=== PATIENT | female | born 1990 | race Hispanic/Latino ===

== ENCOUNTER 2017-10-04 02:26 | Inpatient (IN) | payer OTHER ==
--- OUTSIDE RECORDS SUMMARY | 2017-10-04 10:09 | XMS REPORT ---
:1990 Author Organization eClinicalWorks Care Team Providers Name Role Phone Mirian Irvin Provider Role Unavailable Allergies No Known Allergies Problems Problem Type Condition Code Onset Dates Condition Status Problem Size of fetus inconsistent with O26.843 Active dates in third trimester Problem with uncertain dates in Z34.93 Active third trimester Problem BMI 31.0-31.9,adult Z68.31 Active Assessment with uncertain dates in Z34.93 Active third trimester Assessment Size of fetus inconsistent with O26.843 Active dates in third trimester Problem Unspecified asthma, uncomplicated J45.909 Active Medications Medication Code Code Instructions Start End Date Status Dosage System Date Albuterol [facility] [place]NOTE 2] [id number] 108 (90 Base) Feb 12, Active 2 puffs Sulfate HFA MCG/ACT 2018 as needed Inhalation every 6 hrs Results No Known Results Summary Purpose eClinicalWorks Submission
--- OUTSIDE RECORDS SUMMARY | 2017-10-04 10:09 | XMS REPORT ---
:1990 Author Organization eClinicalWorks Care Team Providers Name Role Phone Mirian Irvin Provider Role Unavailable Allergies No Known Allergies Problems Problem Type Condition Code Onset Dates Condition Status Assessment Unspecified asthma, uncomplicated J45.909 Active Assessment BMI 32.0-32.9,adult Z68.32 Active Assessment Size of fetus inconsistent with O26.843 Active dates in third trimester Problem High-risk in third O09.93 Active trimester Problem Size of fetus inconsistent with O26.843 Active dates in third trimester Problem BMI 32.0-32.9,adult Z68.32 Active Assessment High-risk in third O09.93 Active trimester Problem with uncertain dates in Z34.93 Active third trimester Problem Unspecified asthma, uncomplicated J45.909 Active Medications Medication Code Code Instructions Start End Date Status Dosage System Date Albuterol [facility] [id number] 108 (90 Base) Feb 12, Active 2 puffs Sulfate HFA MCG/ACT 2018 as needed Inhalation every 6 hrs Results No Known Results Summary Purpose [employer] Submission
--- OUTSIDE RECORDS SUMMARY | 2017-10-04 10:09 | XMS REPORT ---
:1990 Author Organization eClinicalWorks Care Team Providers Name Role Phone Mirian Irvin Provider Role Unavailable Allergies No Known Allergies Problems Problem Type Condition Code Onset Dates Condition Status Assessment Unspecified asthma, uncomplicated J45.909 Active Assessment Size of fetus inconsistent with O26.843 Active dates in third trimester Assessment BMI 32.0-32.9,adult Z68.32 Active Problem High-risk in third O09.93 Active trimester Problem Size of fetus inconsistent with O26.843 Active dates in third trimester Problem BMI 32.0-32.9,adult Z68.32 Active Assessment High-risk in third O09.93 Active trimester Problem with uncertain dates in Z34.93 Active third trimester Problem Unspecified asthma, uncomplicated J45.909 Active Medications Medication Code Code Instructions Start End Date Status Dosage System Date Albuterol [facility] [id number] 108 (90 Base) Feb 12, Active 2 puffs Sulfate HFA MCG/ACT 2018 as needed Inhalation every 6 hrs Results No Known Results Summary Purpose [employer] Submission
--- OUTSIDE RECORDS SUMMARY | 2017-10-04 10:10 | XMS REPORT ---
:1990 Author Organization eClinicalWorks Care Team Providers Name Role Phone Mirian Irvin Provider Role Unavailable Allergies No Known Allergies Problems Problem Type Condition Code Onset Dates Condition Status Assessment High-risk in third O09.93 Active trimester Assessment BMI 33.0-33.9,adult Z68.33 Active Problem High-risk in third O09.93 Active trimester Problem Size of fetus inconsistent with O26.843 Active dates in third trimester Problem BMI 33.0-33.9,adult Z68.33 Active Assessment Size of fetus inconsistent with O26.843 Active dates in third trimester Problem with uncertain dates in Z34.93 Active third trimester Problem Unspecified asthma, uncomplicated J45.909 Active Medications Medication Code Code Instructions Start End Date Status Dosage System Date Albuterol [facility] [id number] 108 (90 Base) Apr 08, Active 2 puffs Sulfate HFA MCG/ACT 2018 as needed Inhalation every 6 hrs Results No Known Results Summary Purpose eClinicalWorks Submission
--- OUTSIDE RECORDS SUMMARY | 2017-10-04 10:10 | XMS REPORT ---
:1990 Author Organization eClinicalWorks Care Team Providers Name Role Phone Mirian Irvin Provider Role Unavailable Allergies No Known Allergies Problems Problem Type Condition Code Onset Dates Condition Status Assessment Diseases of the skin and O99.713 Active subcutaneous tissue complicating , third trimester Assessment Pruritus, unspecified L29.9 Active Problem Diseases of the skin and O99.713 Active subcutaneous tissue complicating , third trimester Problem BMI 33.0-33.9,adult Z68.33 Active Problem Pruritus, unspecified L29.9 Active Problem with uncertain dates in Z34.93 Active third trimester Problem Unspecified asthma, uncomplicated J45.909 Active Problem High-risk in third O09.93 Active trimester Problem Size of fetus inconsistent with O26.843 Active dates in third trimester Medications Medication Code Code Instructions Start End Date Status Dosage System Date Albuterol [facility] [id number] 108 (90 Base) Apr 08, Active 2 puffs Sulfate HFA MCG/ACT 2018 as needed Inhalation every 6 hrs Results No Known Results Summary Purpose eClinicalWorks Submission
[2017-10-04] MEDS ORDERED: ONDANSETRON 4 MG/2 ML VIAL IV PRN (10:26)
[2017-10-04] MEDS ORDERED: Ringers Lactate 1,000 ML IV PRN (10:26)
[2017-10-04] MEDS ORDERED: METOCLOPRAMIDE 10 MG/2mL INJ IV PRN (10:26)
[2017-10-04] MEDS ORDERED: DIPHENHYDRAMINE 50 MG/ML VIAL IV PRN (10:26)
[2017-10-04 10:44] VITALS: BMI 33.5
[2017-10-04 10:53] LABS: RPR Titer ND
[2017-10-04 11:00] LABS: Absolute Lymphocytes (CBC) 1.5 K/uL (0.7-4.9); Absolute Monocytes 0.7 K/uL (0.1-1.3); Absolute Neutrophil 5.9 K/uL (1.8-8.0); Basophils % 0.3 % (0-1.3); Eosinophils % 2.2 % (0-4.4); Hematocrit 34.8 % (36.0-45.0); Lymphocytes % 18.3 % (15.3-44.8); MCH 29.6 pg (27.0-35.0); MCV 85.5 fL (80-100); MPV 8.9 fL (7.6-11.3); Monocytes % 8.5 % (3.3-12.3); RBC Red Blood Cell Count 4.07 M/uL (3.86-4.86)
[2017-10-04] MEDS ORDERED: Ringers Lactate 1,000 ML IV SCH (11:00)
[2017-10-04 11:05] LABS: Urine Appearance CLOUDY; Urine Bilirubin NEGATIVE (NEG); Urine Blood NEGATIVE (NEG); Urine Color YELLOW; Urine Glucose NEGATIVE (NEG); Urine Protein NEGATIVE (NEG); Urine Specific Gravity 1.015 (1.005-1.030); Urine Urobilinogen 0.2 mg/dL (0.2-1.0); Urine pH 6.5 (5.0-7.0)
[2017-10-04] MEDS ORDERED: miSOPROStol 100 MCG TAB PO ONE (11:12)
[2017-10-04 11:14] LABS: Urine Microscopic Reflex ORDER UMIC
[2017-10-04 11:15] LABS: Urine Bacteria 20-50 /HPF (<20); Urine Culture Reflex Order NOT NEEDED; Urine RBC <5 /HPF (NONE SEEN)
[2017-10-04 11:16] LABS: BUN Blood Urea Nitrogen 5 mg/dL (7-18); Bicarbonate 22 mmol/L (21-32); Glucose Level 100 mg/dL (74-106); Potassium 3.5 mmol/L (3.5-5.1); Sodium Level 142 mmol/L (136-145); Uric Acid 5.1 mg/dL (2.6-6.0)
--- NOTE | 2017-10-04 12:52 | P.HP ---
Certification for Inpatient Patient admitted to: Inpatient With expected LOS: >2 Midnights Patient will require the following post-hospital care: None Practitioner: I am a practitioner with admitting privileges, knowledge of patient current condition, hospital course, and medical plan of care. Services: Services provided to patient in accordance with Admission requirements found in Title 42 Section 412.3 of the Code of Federal Regulations Patient History Date of Service: 10/04/17 Reason for admission: Induction of labor for FGR, Cholestasis History of Present Illness: 27 y.o. G1 at 38w4d undergoing IOL for suspected cholestasis of with recent onset of pruritis of hands and feet for one week, change in interval growth, and elevated umbilical artery doppler. Pt has been followed by MFM to monitor growth and recent U/S showed 13th percentile as compared to 33rd percentile about 2 weeks ago. Short femurs also noted on imaging, but overall reassured by appropriate growth on interval ultrasounds. However, due to new symptoms and concerns with elevated umbilical dopplers, MFM directed delivery. BENJI: 10/14/2017. GBS negative. Allergies No Known Allergies Allergy (Unverified 02/18/17 19:49) Home Medications: Pnv Cmb#95/Ferrous Fumarate/FA [ Tablet] 1 each PO DAILY 10/04/17 - Past Medical/Surgical History Has patient received pneumonia vaccine in the past: No Diabetic: No Past Medical History: Patient denies medical history Past Surgical History: Patient denies surgical history - Social History Smoking Status: Never smoker Alcohol use: No CD- Drugs: No Caffeine use: Yes Place of Residence: Home Review of Systems 10-point ROS is otherwise unremarkable Physical Examination - Vital Signs Temperature: 98.3 F Blood Pressure: 127/76 Pulse: 115 Respirations: 18 - Physical Exam General: Alert, In no apparent distress, Oriented x3 HEENT: Atraumatic, Normocephalic Respiratory: Other (Normal effort) Cardiovascular: Normal pulses Musculoskeletal: No tenderness, Swelling (2+ pedal edema) Integumentary: No rashes, No breakdown Neurological: Normal speech, Normal strength at 5/5 x4 extr - Studies Laboratory Data (last 24 hrs) 10/04/17 10:40: Sodium 142, Potassium 3.5, BUN 5 L, Creatinine 0.50 L, Glucose 100, Uric Acid 5.1 10/04/17 10:40: WBC 8.3, Hgb 12.1, Hct 34.8 L, Plt Count 217 Female Exam - Female Pelvic Cervix: Dilation (2 by RN), Effacement (60), station (-2) - Obstetrics heart rate tracing: Category 1 Contractions: Frequency (Irregular) Amniotic membrane: Intact Assessment and Plan - Problems (Diagnosis) (1) Cholestasis during in third trimester Current Visit: Yes Status: Acute Plan: Symptoms for about 1 week now. Labs were drawn, but not yet resulted. However, due to GA and impending diagnosis, decision was made to proceed with delivery. Pt is undergoing cervical ripening with cytotec. Transition to pitocin when favorable. She declines an epidural for pain control (2) Size of fetus inconsistent with dates in third trimester Current Visit: Yes Status: Acute Plan: Pt has been followed by MFM with overall reassuring interval growth ultrasounds. However, decrease in growth was noted on recent imaging with elevated umbilical artery dopplers. Delivery was indicated based on new findings. - Advance Directives Does patient have a Living Will: No Does patient have a Durable POA for Healthcare: No
[2017-10-04] MEDS ORDERED: OXYTOCIN/LR 20 UNIT/1,000 ML BAG IV ONE (21:39)
[2017-10-04] MEDS ORDERED: OXYTOCIN/LR 20 UNIT/1,000 ML BAG IV SCH (23:00)
[2017-10-04] MEDS ORDERED: BUTORPHANOL 1 MG/ML INJ IV PRN (23:00)
[2017-10-05] MEDS ORDERED: ROPIVACAINE HCL 100 ML IV PRN (00:30)
[2017-10-05] MEDS ORDERED: ROPIVACAINE HCL 0.2% 20ML AMP IV ONE (00:31)
[2017-10-05] MEDS ORDERED: CARBOPROST TROME 250 MCG/ML IM ONE (00:32)
[2017-10-05] MEDS ORDERED: METHYLERGONOVINE 0.2MG/ML AMP IM ONE ×2 (00:32→17:44)
[2017-10-05 03:22] LABS: RPR (Rapid Plasma Reagin) NON-REACT (NON-REACT)
[2017-10-05] MEDS ORDERED: LIDOCAINE 1% MPF 30 ML VIAL SQ ONE (07:31)
--- NOTE | 2017-10-05 08:54 | P.PN ---
Date of Service: 10/05/17 Pt seen and examined. Discussed AROM and she agreed. She declines an epidural. VSS SVE: /-2 AROM: procedure done without incident. Fluid clear. Pt tolerated well FHR: cat I Contractions: q 3-4 with some coupling A/p: 27 y.o. G1 at 28w5d undergoing IOL for suspected cholestasis and fetus S < D - S/p AROM with clear fluid noted - Continue pitocin and continuous monitoring - Epidural per patient request
[2017-10-05] MEDS ORDERED: FENTANYL CITR 100 MCG/2 ML IV ONE (11:27)
[2017-10-05] MEDS ORDERED: ROPIVACAINE HCL 20 ML ONE ×2 (16:54→19:52)
--- NOTE | 2017-10-05 17:56 | P.PN ---
Date of Service: 10/05/17 Pt seen and examined: 9-10, 1+ station. RN states pt was just re-dosed by anesthesia due to increased pain, but is better now. Tracing: cat I with accelerations and early decels [place]: q 2-3 min Allow to labor down. MF status is overall reassuring. Start second stage when patient feels urge to push. Anticipate .
[2017-10-05] MEDS ORDERED: FENTANYL CITR 100 MCG/2 ML ONE (19:51)
[2017-10-05] MEDS ORDERED: ROPLVACAINE HCL 0 ML ONE (19:52)
[2017-10-05] MEDS ORDERED: NA CIT/CITRIC AC 30 ML ORAL UDC PO ONE (20:45)
[2017-10-05] MEDS ORDERED: CEFAZOLIN 2 GM in NA CHLORIDE 0.9% 100 ML IVPB SCH (20:45)
[2017-10-05] MEDS ORDERED: METOCLOPRAMIDE 10 MG/2mL INJ IV SCH (20:45)
[2017-10-05] MEDS ORDERED: FAMOTIDINE 20 MG/2 ML VIAL IV ONE (20:45)
[2017-10-05] MEDS ORDERED: LIDOCAINE 2% MPF 5 ML VIAL ONE ×2 (20:55→21:07)
[2017-10-05] MEDS ORDERED: CEFAZOLIN/SWI 2gm 2 GM/20 ML SYR ONE (20:55)
--- NOTE | 2017-10-05 21:05 | P.PN ---
Date of Service: 10/05/17 Pt painful during second stage. Anesthesia came to reassess and re-dose patient. She attempted to push momentarily after pain improved. Prolonged decel noted which resolved with discotinuing pitocin, IVF bolus, and oxygen. Irrigation Foreman called to attend delivery. Attempted VAVD using Kiwi (2 pulls), but pushing efforts were not effective so further use was aborted. Pt declined to continue pushing and requested a CD. Team was notified and Ob attending Dr. Luis called in to assist. Proceed to OR when ready.
[2017-10-05] MEDS ORDERED: PROPOFOL 200 MG/20 ML VIAL IV ONE (21:08)
[2017-10-05] MEDS ORDERED: SUCCINYLCHOLINE 20 MG/ML (10 ML) IV ONE (21:08)
[2017-10-05] MEDS ORDERED: BUPIVACAINE 0.5% PF 10 ML VIAL ONE (21:09)
[2017-10-05] MEDS ORDERED: OXYTOCIN 10 UNIT/ML ML IV ONE (21:29)
[2017-10-05] MEDS ORDERED: FENTANYL CITR 250 MCG/5 ML ONE (21:30)
[2017-10-05] MEDS ORDERED: MORPHINE SULFATE/PF 1 MG/ML (10 ML AMP) ONE (21:41)
[2017-10-05] MEDS ORDERED: Phenylephrine HCl 10 MG/ML 1 ML VIAL ONE (22:11)
[2017-10-05] MEDS ORDERED: NA CHLORIDE 0.9% 500 ML IV ONE (23:07)
--- NOTE | 2017-10-05 23:12 | P.OP ---
Preoperative diagnosis: Maternal request, maternal exhaustion, uncontrolled pain Postoperative diagnosis: Same with OP presentation Primary procedure: Primary delivery Anesthesia: General Estimated blood loss: 1000 cc Specimen: Placenta Findings: See operativer report Operative Technique: Intra-operative findings: The uterus was normal. Both fallopian tubes and ovaries were found to be normal.The was in a direct OP position. The was female and weighed 7lb 1 oz. The 's Apgars were 9 at 1 min. and 9 at 5 min. Procedure described: The patient was taken to the operating room within IV running with antibiotics infusing where she was placed in a dorsal supine position with a slight leftward tilt. A logan catheter was already in place. She was prepped and draped in the normal sterile fashion from the xiphoid sternum to the midthighs including the vulva and vagina. PAS stockings were in place and activated. A timeout was done per our usual protocol. Pain was not controlled and anesthesia was not adequately achieved. She was placed under general anesthesia. A Pfannenstielincision was made about 1 cm above the symphysis pubis and carried out through the subcutaneous tissue withthe scalpel. The fascia was nicked in the midline and the fascial incision was extended laterally with Yoo scissors. The superior aspect of the fascial incision was tented up and bluntly and sharply dissected off the rectus muscles below. In a similar fashion, the superior aspect of the fascial incision was tented up and bluntly and sharply dissected off the rectus muscles below. The rectus muscles were in the midline, the peritoneum was identified and entered sharply between two hemostats using Metzenbaum scissors. The peritoneal incision was extended superiorly and inferiorly with good visualization of intraperitoneal organs and the bladder. The bladder blade was placed, but a bladder flap was developed. A transverse curvilinear incision was made in the lower uterine segment. The incision was extended laterally with blunt digital dissection. The surgeon's hand was placed into the incision, the 's head was delivered, followed by the torso. The mouth and nose were suctioned with and suction bulb. The umbilical cord was clamped and cut and the was handed off to the awaiting immunologist. Cord blood was obtained. The uterus was massaged and the placenta was delivered. The uterus was exteriorized and cleared of all clots and debris. The bladder blade was replaced, the edges of the uterine incision where grasped with ring forceps and the incision was closed using 0- Monocryl suture in a running un-locking fashion and closed in 2 layers. There was an extension of the hysterotomy on the left side. It was closed separately using the same suture. Hemostasis was noted. The hysterotomy was inspected and found to be hemostatic. The bladder peritoneum was not re-approximately. The pelvic peritoneum was not irrigated, but was cleared of all clots and debris. The uterus was replaced into the peritoneal cavity. The rectus muscles were inspected and found to be hemostatic and the rectus muscles were not re- approximated. The fascia was then closed with 0-Vicryl suture in a running fashion. The subcutaneous tissues were copiously lavaged with warm normal saline. Hemostasis was noted. The skin was closed with irene in two layers. An occlusive dressing was applied. Sponge, needle, instrument counts were correct x 2. There were no complications and patient tolerated the procedure well. She was taken to recovery in good condition and allowed to do with Complications: Extension of hysterotomy on the left Fluids & blood products: Per anesthesia Transferred to: Recovery Room Condition: Good
[2017-10-05] MEDS ORDERED: NA CHLORIDE 0.9% 0 ML ONE (23:15)
[2017-10-05 23:29] LABS: Hematocrit 34.2 % (36.0-45.0); MCH 29.1 pg (27.0-35.0); MCV 86.1 fL (80-100); MPV 8.6 fL (7.6-11.3); RBC Red Blood Cell Count 3.97 M/uL (3.86-4.86)
[2017-10-05] MEDS ORDERED: NA CHLORIDE 0.9% 1,000 ML IV SCH (23:45)
[2017-10-05] MEDS ORDERED: CEFAZOLIN/NS 1gm 1 GM/50 ML BAG IVPB ONE (23:45)
[2017-10-05 23:46] LABS: BUN Blood Urea Nitrogen 3 mg/dL (7-18); Bicarbonate 19 mmol/L (21-32); Glucose Level 125 mg/dL (74-106); Potassium 3.5 mmol/L (3.5-5.1); Sodium Level 142 mmol/L (136-145)
[2017-10-05] MEDS ORDERED: CEFAZOLIN/SWI 1gm 1 GM/10 ML SYR ONE (23:54)
[2017-10-06] MEDS ORDERED: FAMOTIDINE 20 MG/2 ML VIAL IV ONE (00:14)
[2017-10-06] MEDS ORDERED: NA CIT/CITRIC AC 30 ML ORAL UDC ONE (00:14)
[2017-10-06] MEDS: METOCLOPRAMIDE 10 MG/2mL INJ IV SCH ×3 (00:58→17:00)
[2017-10-06 02:03] VITALS: O2SAT 99
[2017-10-06 05:08] LABS: Absolute Lymphocytes (CBC) 0.9 K/uL (0.7-4.9); Absolute Monocytes 1.8 K/uL (0.1-1.3); Absolute Neutrophil 17.6 K/uL (1.8-8.0); Basophils % 0.2 % (0-1.3); Hematocrit 27.6 % (36.0-45.0); Lymphocytes % 4.5 % (15.3-44.8); MCV 86.6 fL (80-100); MPV 8.8 fL (7.6-11.3); Monocytes % 8.7 % (3.3-12.3); RBC Red Blood Cell Count 3.19 M/uL (3.86-4.86)
[2017-10-06 05:25] LABS: BUN Blood Urea Nitrogen 3 mg/dL (7-18); Bicarbonate 22 mmol/L (21-32); Glucose Level 109 mg/dL (74-106); Potassium 3.8 mmol/L (3.5-5.1); Sodium Level 140 mmol/L (136-145)
[2017-10-06 06:21] LABS: Blood Morphology Comment NOT SEEN (NOT SEEN); Platelet Estimate ADEQ
--- NOTE | 2017-10-06 09:13 | RAD REPORT ---
EXAM DESCRIPTION: RAD - Urograph (IVP) - 10/06/2017 8:56 am CLINICAL HISTORY: Left-sided abdominal pain, left-sided flank pain, patient is status post emergency COMPARISON: None. TECHNIQUE: Multiple supine KUB projections were obtained following administration of nonionic IV con trast. FINDINGS: Prompt, symmetric nephrograms are seen. No mass or focal defect identifiable. There is pro mpt excretion of contrast into nondilated pelvis and calices. Label Rewinder film shows no renal or ureteral c alculi. Skin irene across the lower pelvis are from recent . Serial imaging shows opacific ation of the ureters without abnormal dilatation. No delay in transit of contrast from either ureter into the bladder. No stone, stricture or mass identifiable. Urinary bladder is mostly contracted arou nd a Kelly catheter. Catheter was clamped for the procedure. Partially filled urinary bladder shows n o mass, stone or suspicious finding. IMPRESSION: Negative IVP examination.
[2017-10-06] MEDS: KETOROLAC 30 MG/ML INJ IV PRN ×2 (10:56→18:35)
[2017-10-06] MEDS ORDERED: AMPICILLIN SODIUM 125 MG VIAL IV SCH (11:00)
--- NOTE | 2017-10-06 11:12 | P.PN ---
Subjective Date of Service: 10/06/17 Chief Complaint: Induction of labor for FGR, Cholestasis Subjective: Tolerating diet, Ambulating (She is trying to breastfeed infant. Pain is well controlled and lochea is normal. She did ok when up to ambulate), Doing well Review of Systems 10-point ROS is otherwise unremarkable Physical Examination - Vital Signs Temperature: 97.7 F Blood Pressure: 109/61 Pulse: 88 Respirations: 16 Pulse Ox (%): 99 - Physical Exam General: Alert, In no apparent distress, Oriented x3 HEENT: Atraumatic, Normocephalic Respiratory: Clear to auscultation bilaterally, Normal air movement Cardiovascular: Regular rate/rhythm, Normal S1 S2 Gastrointestinal: Hypoactive, No tenderness, No rebound, No guarding, Other ( Dressing: C/D/I) Musculoskeletal: No swelling, No tenderness Integumentary: No rashes, No breakdown Neurological: Normal speech, Normal strength at 5/5 x4 extr - Studies Laboratory Data (last 24 hrs) 10/06/17 05:00: Sodium 140, Potassium 3.8, BUN 3 L, Creatinine 0.50 L, Glucose 109 H 10/06/17 05:00: WBC 20.4 H*, Hgb 9.2 L, Hct 27.6 L D, Plt Count 202 10/05/17 23:18: Sodium 142, Potassium 3.5, BUN 3 L, Creatinine 0.60, Glucose 125 H 10/05/17 23:18: WBC 23.7 H* D, Hgb 11.6 L, Hct 34.2 L, Plt Count 237 Assessment And Plan - Current Problems (Diagnosis) (1) Cholestasis during in third trimester Current Visit: Yes Status: Resolved (2) Size of fetus inconsistent with dates in third trimester Current Visit: Yes Status: Resolved Plan: . (3) delivery delivered Current Visit: Yes Status: Acute Plan: Pt is doing well on POD #1. Pain is well controlled. Slowly continue to advance diet. Ambulation encouraged. IVP reviewed and negative findings noted, discussed with patient. (4) Leukocytosis Current Visit: Yes Status: Acute Plan: Risk for PP endometritis. Ordered IV antibiotics: ampicillin 2 g q6h, gentamicin 120 mg loading dose followed by 80 mg q8h, and flagyl 500 mg q8h. Patient is afebrile, but remains tachycardic. Repeat labs in AM. Qualifiers: Leukocytosis type: bandemia Qualified Code(s): D72.825 - Bandemia
[2017-10-06] MEDS ORDERED: Gentamicin Inj 120 MG in NA CHLORIDE 0.9% 100 ML IV SCH (12:00)
[2017-10-06] MEDS: AMPICILLIN SODIUM 2 GM in NA CHLORIDE 0.9% 100 ML IVPB SCH ×3 (12:49→21:00)
[2017-10-06] MEDS: METRONIDAZOLE 500mg IVPB 500 MG/100 ML BAG IV SCH (16:14)
[2017-10-06] MEDS: GENTAMICIN 80 MG/100 ML BAG 80 MG/100 ML BAG IV SCH (17:00)
[2017-10-06] MEDS ORDERED: MORPHINE 4 MG/ML SYR IV PRN (18:22)
[2017-10-06] MEDS ORDERED: AMPICILLIN SODIUM 2 GM/VIAL VIAL ONE (20:30)
[2017-10-06] MEDS ORDERED: NA CHLORIDE 0.9% 100 ML IV ONE ×2 (20:31→20:34)
[2017-10-06] MEDS: ACETAMINOPHEN 500 MG TAB PO PRN (21:20)
[2017-10-07] MEDS: KETOROLAC 30 MG/ML INJ IV PRN ×2 (00:59→06:53)
[2017-10-07] MEDS: METRONIDAZOLE 500mg IVPB 500 MG/100 ML BAG IV SCH ×2 (01:00→10:00)
[2017-10-07] MEDS: GENTAMICIN 80 MG/100 ML BAG 80 MG/100 ML BAG IV SCH ×3 (02:00→16:25)
[2017-10-07 04:16] LABS: Absolute Lymphocytes (CBC) 2.1 K/uL (0.7-4.9); Absolute Monocytes 1.4 K/uL (0.1-1.3); Absolute Neutrophil 10.7 K/uL (1.8-8.0); Basophils % 0.2 % (0-1.3); Eosinophils % 0.5 % (0-4.4); Lymphocytes % 14.5 % (15.3-44.8); MCH 29.3 pg (27.0-35.0); MCV 85.4 fL (80-100); MPV 8.7 fL (7.6-11.3); Monocytes % 9.6 % (3.3-12.3); RBC Red Blood Cell Count 2.57 M/uL (3.86-4.86)
[2017-10-07 04:25] LABS: BUN Blood Urea Nitrogen 5 mg/dL (7-18); Bicarbonate 23 mmol/L (21-32); Glucose Level 85 mg/dL (74-106); Potassium 3.5 mmol/L (3.5-5.1); Sodium Level 143 mmol/L (136-145)
[2017-10-07] MEDS: METOCLOPRAMIDE 10 MG/2mL INJ IV SCH (05:09)
[2017-10-07] MEDS: ACETAMINOPHEN 500 MG TAB PO PRN (05:25)
[2017-10-07] MEDS ORDERED: Tdap (Diph,Pertuss(Acell),Tet Vac) 0.5 ML SYR IMVAC ONE (08:53)
[2017-10-07] MEDS: AMPICILLIN SODIUM 2 GM in NA CHLORIDE 0.9% 100 ML IVPB SCH ×2 (09:28→12:46)
--- NOTE | 2017-10-07 11:16 | P.DS ---
Admission Date: 10/04/17 Discharge Date: 10/07/17 Disposition: ROUTINE DISCHARGE Comment: Rounding with discharge summary Discharge Condition: GOOD Reason for Admission: Induction of labor for FGR, Cholestasis - Problems (1) Cholestasis during in third trimester Onset Date: 10/07/17 Current Visit: Yes Status: Resolved (2) Size of fetus inconsistent with dates in third trimester Onset Date: 10/07/17 Current Visit: Yes Status: Resolved (3) delivery delivered Onset Date: 10/07/17 Current Visit: Yes Status: Acute (4) Leukocytosis Current Visit: Yes Status: Resolved Qualifiers: Leukocytosis type: bandemia Qualified Code(s): D72.825 - Bandemia Brief History of Present Illness: 27 y.o. G1 at 38w4d undergoing IOL for suspected cholestasis of with recent onset of pruritis of hands and feet for one week, change in interval growth, and elevated umbilical artery doppler. Pt has been followed by MFM to monitor growth and recent U/S showed 13th percentile as compared to 33rd percentile about 2 weeks ago. Short femurs also noted on imaging, but overall reassured by appropriate growth on interval ultrasounds. However, due to new symptoms and concerns with elevated umbilical dopplers, MFM directed delivery. BENJI: 10/14/2017. GBS negative. Hospital Course: Pt was admitted for a medical induction of labor. It progressed well until 2nd stage. Pt had a hard time with pushing and requested a CD. It was complicated by extension of hysterotomy site on left and had greater than usual blood loss ( ~1000 cc). IVP was done and negative. She has done well in recovery period c/ b leukocytosis and acute blood loss anemia noted. She has been treated with antibiotics with appropriate response. Will d/c therapy today. She is asymptomatic and denies CP, DAVID, palpitations, and pulse is normal. No plans to transfuse at this time. Plan to d/c home tomorrow. Pt is agreeable. Vital Signs/Physical Exam: Temp Pulse Resp BP Pulse Ox 98.1 F 83 16 110/62 99 10/07/17 07:34 10/07/17 07:34 10/07/17 07:34 10/07/17 07:34 10/06/17 11:16 General: Alert, In no apparent distress, Oriented x3 HEENT: Atraumatic, Normocephalic Respiratory: Clear to auscultation bilaterally, Normal air movement Cardiovascular: Normal pulses, Regular rate/rhythm, Normal S1 S2 Gastrointestinal: Normal bowel sounds, Soft and benign, No tenderness, No rebound, No guarding, Other (Obese, closed with irene. Incision is C/D/I. Uterus is firm and below umbilicus) Musculoskeletal: No erythema, No tenderness, Swelling (Pedal edema) Neurological: Normal speech, Normal strength at 5/5 x4 extr Laboratory Data at Discharge: WBC 14.3 K/uL (4.3-10.9) H D 10/07/17 04:03 Hgb 7.5 g/dL (12.0-15.0) L* 10/07/17 04:03 Hct 22.0 % (36.0-45.0) L D 10/07/17 04:03 Plt Count 185 K/uL (152-406) 10/07/17 04:03 Sodium 143 mmol/L (136-145) 10/07/17 04:03 Potassium 3.5 mmol/L (3.5-5.1) 10/07/17 04:03 BUN 5 mg/dL (7-18) L 10/07/17 04:03 Creatinine 0.40 mg/dL (0.55-1.3) L 10/07/17 04:03 Glucose 85 mg/dL (74-106) 10/07/17 04:03 Uric Acid 5.1 mg/dL (2.6-6.0) 10/04/17 10:40 Home Medications: Pnv Cmb#95/Ferrous Fumarate/FA [ Tablet] 1 each PO DAILY 10/04/17 Hydrocodone 5/APAP 325 [[place] 5/325] 1 tab PO Q4H PRN #30 tab 10/07/17 Ibuprofen 800 mg PO Q8H PRN #30 tablet 10/07/17 New Medications: Hydrocodone 5/APAP 325 [[place] 5/325] 1 tab PO Q4H PRN #30 tab PRN Reason: Pain Scale 8-10 (Severe) Ibuprofen 800 mg PO Q8H PRN #30 tablet PRN Reason: Abdominal Cramps Patient Discharge Instructions: See doctor Saturday for staple removal. Notify physician of fever/chills, heavy bleeding, or uncontrolled pain. Complete pelvic rest for 6 weeks Diet: Regular Activity: No lifting more than 10 lbs Followup: Mirian Irvin MD [ACTIVE - CAN ADMIT] -
[2017-10-07] MEDS ORDERED: DIPHENHYDRAMINE 25 MG TAB/CAP PO PRN (11:27)
[2017-10-07] MEDS ORDERED: ONDANSETRON 4 MG (ODT) TAB PO PRN (11:27)
[2017-10-07] MEDS: METOCLOPRAMIDE 5 MG TAB PO SCH ×2 (12:46→18:04)
[2017-10-07] MEDS: HYDROCODONE/APAP 5/325 MG TAB PO PRN ×2 (12:47→20:26)
[2017-10-07] MEDS: IBUPROFEN 400 MG TAB PO PRN (18:03)
[2017-10-08] MEDS: HYDROCODONE/APAP 5/325 MG TAB PO PRN ×3 (00:23→08:54)
[2017-10-08] MEDS: METOCLOPRAMIDE 5 MG TAB PO SCH ×2 (00:23→06:37)
[2017-10-08 05:12] LABS: Absolute Lymphocytes (CBC) 1.5 K/uL (0.7-4.9); Absolute Monocytes 0.6 K/uL (0.1-1.3); Absolute Neutrophil 8.6 K/uL (1.8-8.0); Basophils % 0.4 % (0-1.3); Hematocrit 25.6 % (36.0-45.0); Lymphocytes % 13.8 % (15.3-44.8); MCH 29.6 pg (27.0-35.0); MCV 86.6 fL (80-100); MPV 8.8 fL (7.6-11.3); Monocytes % 5.6 % (3.3-12.3); RBC Red Blood Cell Count 2.95 M/uL (3.86-4.86)
[2017-10-08 05:13] LABS: BUN Blood Urea Nitrogen 5 mg/dL (7-18); Bicarbonate 26 mmol/L (21-32); Glucose Level 77 mg/dL (74-106); Potassium 3.3 mmol/L (3.5-5.1); Sodium Level 142 mmol/L (136-145)
[2017-10-08] MEDS: IBUPROFEN 400 MG TAB PO PRN (06:40)
[2017-10-08 07:19] VITALS: TEMP 98.7
[2017-10-08 07:48] VITALS: BP 111/66
--- NOTE | 2017-10-08 09:47 | P.PN ---
Subjective Date of Service: 10/08/17 Chief Complaint: Induction of labor for FGR, Cholestasis Subjective: Tolerating diet, Ambulating Pt reports feeling somewhat light when ambulating and c/o headaches today. She denies CP or DAVID in breathing. She's trying to breastfeed, but still has difficulty with latching. Pain is increased as well with ambulation. Bleeding is described as light. Review of Systems Gastrointestinal: Other (Surgical site pain) Neurological: Other (KAY) Physical Examination - Vital Signs Temperature: 98.7 F Blood Pressure: 111/66 Pulse: 114 Respirations: 16 Pulse Ox (%): 99 - Physical Exam General: Alert, In no apparent distress, Oriented x3 HEENT: Atraumatic, Normocephalic Respiratory: Other (Normal effort) Cardiovascular: Normal pulses Gastrointestinal: Soft and benign, Other (Incision: C/D/I, closed with irene) Musculoskeletal: Swelling (B/L pedal edema) Integumentary: No rashes, No breakdown Neurological: Normal speech, Normal strength at 5/5 x4 extr - Studies Laboratory Data (last 24 hrs) 10/08/17 04:17: Sodium 142, Potassium 3.3 L, BUN 5 L, Creatinine 0.50 L, Glucose 77 10/08/17 04:17: WBC 10.8 D, Hgb 8.8 L, Hct 25.6 L D, Plt Count 223 D Assessment And Plan - Current Problems (Diagnosis) (1) delivery delivered Onset Date: 10/07/17 Status: Acute Plan: Pt is doing well on POD #3. Pain is moderately controlled. Ambulation encouraged. Advised to use nipple shield to help with . (2) Acute blood loss anemia Status: Acute Plan: Pt did well initially postop, but became symptomatic today now that she is up to ambulate more. She is experiencing HAs as well. Recommend 1 unit PRBc and repeat CBC after transfusion. Pt accepted, orders placed.
[2017-10-08 14:09] LABS: HBsAG Nonreactive (Nonreactive)
--- NOTE | 2017-10-08 17:53 | P.PN ---
Date of Service: 10/08/17 Late entry from 10:50 AM RN called to report after orders were placed and preparations were made to start transfusion, patient changed her mind and refused transfusion. She declined despite recommendations based on symptoms reported this morning. She requested to go home without transfusion.
== END 2017-10-08 12:00 | disposition home or self-care (01) | DRG 765 ==
LOC: 2ND-WC 10:07
PROVIDERS: ADMIT Obstetrics & Gynecology; ATTEND Obstetrics & Gynecology
PROC: 3E0P7VZ Introduction of Hormone into Female Reproductive, Via Natural or Artificial Opening (ICD-10-PCS; 2017-10-04)
PROC: 10907ZC Drainage of Amniotic Fluid, Therapeutic from Products of Conception, Via Natural or Artificial Opening (ICD-10-PCS; 2017-10-05)
PROC: 3E033VJ Introduction of Other Hormone into Peripheral Vein, Percutaneous Approach (ICD-10-PCS; 2017-10-05)
PROC: 10D00Z1 Extraction of Products of Conception, Low, Open Approach (ICD-10-PCS; principal; 2017-10-05 21:00)
DX: O36.5930 Maternal care for other known or suspected poor fetal growth, third trimester, not applicable or unspecified (principal); K83.1 Obstruction of bile duct; O26.62 Liver and biliary tract disorders in childbirth; D62 Acute posthemorrhagic anemia; O76 Abnormality in fetal heart rate and rhythm complicating labor and delivery; O64.0XX0 Obstructed labor due to incomplete rotation of fetal head, not applicable or unspecified; Z3A.38 38 weeks gestation of pregnancy; Z37.0 Single live birth; O66.5 Attempted application of vacuum extractor and forceps; O90.81 Anemia of the puerperium; O90.89 Other complications of the puerperium, not elsewhere classified; D72.825 Bandemia
CPT/HCPCS: 36415; 74400; 80048; 80170; 81003; 81015; 84550; 85025; 85027; 86592; 86850; 86900; 86901; 87340; 88307; J0290; J0330; J0595; J0690; J1580; J2210; J2370; J2405; J2590; J2765; J2795; J3010; J7030

== ENCOUNTER 2017-10-09 14:30 | Emergency (ER) | payer OTHER ==
--- OUTSIDE RECORDS SUMMARY | 2017-10-09 14:32 | XMS REPORT ---
[...] Date Status Dosage System Date Albuterol [facility] [id number] 108 (90 Base) Feb 12, Active 2 puffs Sulfate HFA MCG/ACT 2018 as needed Inhalation every 6 hrs Results No Known Results Summary Purpose [employer] Submission
--- OUTSIDE RECORDS SUMMARY | 2017-10-09 14:32 | XMS REPORT ---
[...] End Date Status Dosage System Date Albuterol [facility] [id number] 108 (90 Base) Feb 12, Active 2 puffs Sulfate HFA MCG/ACT 2018 as needed Inhalation every 6 hrs Results No Known Results Summary Purpose eClinicalWorks Submission
--- OUTSIDE RECORDS SUMMARY | 2017-10-09 14:32 | XMS REPORT ---
[...] Date Status Dosage System Date Albuterol [facility] [id number] 108 (90 Base) Apr 08, Active 2 puffs Sulfate HFA MCG/ACT 2018 as needed Inhalation every 6 hrs Results No Known Results Summary Purpose [employer]ClinicalWorks Submission
--- OUTSIDE RECORDS SUMMARY | 2017-10-09 14:32 | XMS REPORT ---
[...] End Date Status Dosage System Date Albuterol [facility] [id number] 108 (90 Base) Feb 12, Active 2 puffs Sulfate HFA MCG/ACT 2018 as needed Inhalation every 6 hrs Results No Known Results Summary Purpose [employer] Submission
--- OUTSIDE RECORDS SUMMARY | 2017-10-09 14:32 | XMS REPORT ---
[...] End Date Status Dosage System Date Albuterol [facility] [id number] 108 (90 Base) Apr 08, Active 2 puffs Sulfate HFA MCG/ACT 2018 as needed Inhalation every 6 hrs Results No Known Results Summary Purpose [employer]ClinicalWorks Submission
--- NOTE | 2017-10-09 15:23 | RAD REPORT ---
EXAM DESCRIPTION: CT - Head Brain Wo Cont - 10/09/2017 3:16 pm CLINICAL HISTORY: HEADACHE COMPARISON: No comparisons TECHNIQUE: All CT scans are performed using dose optimization technique as appropriate and may inclu de automated exposure control or mA/KV adjustment according to patient size. FINDINGS: No intracranial hemorrhage, hydrocephalus or extra-axial fluid collection.No areas of brai n edema or evidence of midline shift. The paranasal sinuses and mastoids are clear. The calvarium is intact. IMPRESSION: No acute intracranial abnormality.
[2017-10-09 15:28] LABS: Absolute Lymphocytes (CBC) 1.6 K/uL (0.7-4.9); Absolute Monocytes 0.8 K/uL (0.1-1.3); Basophils % 0.5 % (0-1.3); Eosinophils % 5.2 % (0-4.4); Hematocrit 24.9 % (36.0-45.0); Lymphocytes % 20.3 % (15.3-44.8); MCH 28.9 pg (27.0-35.0); MCV 87.1 fL (80-100); MPV 8.2 fL (7.6-11.3); Monocytes % 9.7 % (3.3-12.3); RBC Red Blood Cell Count 2.86 M/uL (3.86-4.86)
[2017-10-09] MEDS ORDERED: NA CHLORIDE 0.9% 500 ML ONE (15:28)
[2017-10-09 15:32] LABS: BUN Blood Urea Nitrogen 6 mg/dL (7-18); Bicarbonate 27 mmol/L (21-32); Glucose Level 84 mg/dL (74-106); Potassium 3.4 mmol/L (3.5-5.1); Sodium Level 143 mmol/L (136-145)
[2017-10-09 15:33] LABS: Urine Blood 2+ (NEG); Urine Glucose NEGATIVE (NEG); Urine Protein NEGATIVE (NEG)
--- NOTE | 2017-10-09 16:34 | ER ---
Nurse's Notes [facility] Name: Patti Saenz Age: 27 yrs Sex: Female : 1990 Arrival Date: 10/09/2017 Time: 14:32 Bed 27 Private MD: Diagnosis: Headache;Dizziness and giddiness;Anemia, unspecified; - recent Presentation: 10/09 14:47 Presenting complaint: Patient states: I had an emergency c section on Saturday, the sg doctor said that i lost a lot of blood. Yesterday I was seen by , and she told me I need a blood transfusion, but i refused because I was feeling better, and i dont like the process of the blood transfusion. This morning, I feel dizzy and like fluid is in the back of my head. Transition of care: patient was not received from another setting of care. Onset of symptoms was October 09, 2017. Risk Assessment: Do you want to hurt yourself or someone else? Patient reports no desire to harm self or others. Initial Sepsis Screen: Does the patient meet any 2 criteria? No. Patient's initial sepsis screen is negative. Does the patient have a suspected source of infection? No. Patient's initial sepsis screen is negative. Care prior to arrival: None. 14:47 Method Of Arrival: Ambulatory 14:47 Acuity: SAIDA 3 Triage Assessment: 15:14 Headache History: Denies prior headaches. General: Appears in no apparent distress. rv comfortable, Behavior is calm, cooperative. Pain: Pain currently is 4 out of 10 on a pain scale. Pain began 1 day ago. Also complains of no other associated symptoms. 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 - Social history:: Smoking status: Patient/guardian denies using tobacco. - Ebola Screening: : Patient negative for fever greater than or equal to 101.5 degrees Fahrenheit, and additional compatible Ebola Virus Disease symptoms Patient denies exposure to infectious person Patient denies travel to an Ebola-affected area in the 21 days before illness onset No symptoms or risks identified at this time. Screenin:11 Abuse screen: Denies threats or abuse. Denies injuries from another. Nutritional rv screening: No deficits noted. Tuberculosis screening: No symptoms or risk factors identified. Fall Risk None identified. Assessment: 15:01 General: Appears in no apparent distress. comfortable, Behavior is calm, cooperative. rv Pain: Denies pain. Neuro: Level of Consciousness is awake, alert, obeys commands, Oriented to person, place, time, situation. Cardiovascular: Capillary refill < 3 seconds. Respiratory: Airway is patent. GI: No signs and/or symptoms were reported involving the gastrointestinal system. : No signs and/or symptoms were reported regarding the genitourinary system. EENT: No signs and/or symptoms were reported regarding the EENT system. Derm: Skin is intact. 16:21 Reassessment: Patient appears in no apparent distress at this time. Patient and/or rv family updated on plan of care and expected duration. Pain level reassessed. Patient is alert, oriented x 3, equal unlabored respirations, skin warm/dry/pink. PATIENT IS LYING ON BED COMFORTABLY. Vital Signs: 14:49 BP 137 / 88; Pulse 121; Resp 19 S; Pulse Ox 99% on R/A; Pain 0/10; sg 14:49 Temp 97.7; sg 16:21 BP 121 / 76; Pulse 111; Pulse Ox 100% on R/A; rv 16:46 BP 121 / 76; Pulse 103; Pulse Ox 97% on R/A; rv ED Course: 14:32 Patient arrived in ED. rg4 14:43 Carl Quintana MD is Attending Physician. kdr 14:49 Triage completed. sg 14:50 Arm band placed on. sg 15:[address] via wheelchair. kw1 15:11 Inserted saline lock: 22 gauge in left forearm, using aseptic technique. rv 15:12 Patient has correct armband on for positive identification. Placed in gown. Bed in low rv position. Call light in reach. Side rails up X 1. Pulse ox on. NIBP on. 15:17 CT Head Brain wo Cont In Process Unspecified. EDMS 16:46 No provider procedures requiring assistance completed. IV discontinued, bleeding rv controlled, No redness/swelling at site. Pressure dressing applied. Administered Medications: 15:26 Drug: NS 0.9% 500 ml Route: IV; Rate: bolus; Site: left forearm; rv 16:45 Follow up: IV Status: Completed infusion rv Outcome: 16:33 Discharge ordered by . tobias 16:46 Discharged to home ambulatory. rv 16:46 Condition: good 16:46 Discharge instructions given to patient, Instructed on discharge instructions, follow up and referral plans. 16:47 Patient left the ED. rv Signatures: Dispatcher [employer] EDDevin Lobo, RN RN Carl Quintana MD MD kdr Garcia, Rubi 4 Lilliana Dumas [facility] Tony Bundy, RN RN rv
--- NOTE | 2017-10-09 16:34 | EDPHYS ---
Physician Documentation [facility] Name: Patti Saenz Age: 27 yrs Sex: Female : 1990 Arrival Date: 10/09/2017 Time: 14:32 Bed 27 Private MD: ED Physician Carl Quintana HPI: 10/09 15:02 This 27 yrs old Female presents to ER via Ambulatory with complaints of kdr Dizziness, Headache. 15:02 The patient c/o generalized posterior/occipital KYA - feels like fluid or air in her kdr head. She also feel dizzy. 18:55 Onset: The symptoms/episode began/occurred gradually, 3 day(s) ago. Severity of kdr symptoms: At their worst the symptoms were mild in the emergency department the symptoms are unchanged. The patient has not experienced similar symptoms in the past. The patient has been recently seen by a physician: The patient is s/p on Saturday. Visited with Dr. Irvin who reportedly thought she needed a transfusion. The patient now c/o feeling like there is water or air in the back of her head/mild KAY, dizziness and bilateral lower extremity swelling. She denies any complication from her delivery and she has not had these s/s before. She had no complications or concerns with . 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 - Social history:: Smoking status: Patient/guardian denies using tobacco. - Ebola Screening: : Patient negative for fever greater than or equal to 101.5 degrees Fahrenheit, and additional compatible Ebola Virus Disease symptoms Patient denies exposure to infectious person Patient denies travel to an Ebola-affected area in the 21 days before illness onset No symptoms or risks identified at this time. ROS: 18:55 Constitutional: Negative for fever, chills, and weight loss, Eyes: Negative for injury, kdr pain, redness, and discharge, Neck: Negative for injury, pain, and swelling, Cardiovascular: Negative for chest pain, palpitations, and edema, Respiratory: Negative for shortness of breath, cough, wheezing, and pleuritic chest pain, Abdomen/GI: Negative for abdominal pain, nausea, vomiting, diarrhea, and constipation, Back: Negative for injury and pain, : Negative for injury, bleeding, discharge, and swelling, Skin: Negative for injury, rash, and discoloration, Neuro: Negative for headache, weakness, numbness, tingling, and seizure activity. Psych: Negative for depression, anxiety, suicide ideation, homicidal ideation, and hallucinations, Allergy/Immunology: Negative for hives, rash, and allergies, Endocrine: Negative for neck swelling, polydipsia, polyuria, polyphagia, and marked weight changes, Hematologic/Lymphatic: Negative for swollen nodes, abnormal bleeding, and unusual bruising. 18:55 MS/extremity: Positive for swelling, of the right leg and left leg. Exam: 18:55 Constitutional: This is a well developed, well nourished patient who is awake, alert, kdr and in no acute distress. Head/Face: Normocephalic, atraumatic. Eyes: Pupils equal round and reactive to light, extra-ocular motions intact. Lids and lashes normal. Conjunctiva and sclera are non-icteric and not injected. Cornea within normal limits. Periorbital areas with no swelling, redness, or edema. Neck: Trachea midline, no thyromegaly or masses palpated, and no cervical lymphadenopathy. Supple, full range of motion without nuchal rigidity, or vertebral point tenderness. No Meningismus. Chest/axilla: Normal chest wall appearance and motion. Nontender with no deformity. No lesions are appreciated. Cardiovascular: Regular rate and rhythm with a normal S1 and S2. No gallops, murmurs, or rubs. Normal PMI, no JVD. No pulse deficits. Respiratory: Lungs have equal breath sounds bilaterally, clear to auscultation and percussion. No rales, rhonchi or wheezes noted. No increased work of breathing, no retractions or nasal flaring. Abdomen/GI: Soft, non-tender, with normal bowel sounds. No distension or tympany. No guarding or rebound. No evidence of tenderness throughout. Back: No spinal tenderness. No costovertebral tenderness. Full range of motion. Skin: Warm, dry with normal turgor. Normal color with no rashes, no lesions, and no evidence of cellulitis. Neuro: Awake and alert, GCS 15, oriented to person, place, time, and situation. Cranial nerves II-XII grossly intact. Motor strength 5/5 in all extremities. Sensory grossly intact. Cerebellar exam normal. Normal gait. Psych: Awake, alert, with orientation to person, place and time. Behavior, mood, and affect are within normal limits. 18:55 Musculoskeletal/extremity: Diffuse swelling to both lower extremities to the thighs.. Vital Signs: 14:49 BP 137 / 88; Pulse 121; Resp 19 S; Pulse Ox 99% on R/A; Pain 0/10; sg 14:49 Temp 97.7; sg 16:21 BP 121 / 76; Pulse 111; Pulse Ox 100% on R/A; rv 16:46 BP 121 / 76; Pulse 103; Pulse Ox 97% on R/A; rv MDM: 16:33 Patient medically screened. kdr 18:55 Data reviewed: vital signs, nurses notes, lab test result(s), radiologic studies. kdr Counseling: I had a detailed discussion with the patient and/or guardian regarding: the historical points, exam findings, and any diagnostic results supporting the discharge/admit diagnosis, lab results, radiology results, the need for outpatient follow up. ED course: No suggestion of pre-eclampsia/eclampsia from evaluation performed - no other concerns for an acute illness. 10/09 14:59 Order name: CBC with Diff; Complete Time: 16:32 [facility] 10/09 14:59 Order name: Chem 7; Complete Time: 16:32 [facility] 10/09 14:59 Order name: Urine Dipstick-Ancillary (obtain specimen); Complete Time: 15:01 [facility] 10/09 14:59 Order name: CT Head Brain wo Cont; Complete Time: 16:32 [facility] 10/09 15:04 Order name: Urine Dipstick--Ancillary (enter results); Complete Time: 16:32 mb4 Administered Medications: 15:26 Drug: NS 0.9% 500 ml Route: IV; Rate: bolus; Site: left forearm; rv 16:45 Follow up: IV Status: Completed infusion rv Disposition: 10/09/17 16:33 Discharged to Home. Impression: Headache, Dizziness and giddiness, Anemia, unspecified, - recent. - Condition is Stable. - Discharge Instructions: Anemia, Nonspecific, Dizziness. - Medication Reconciliation Form, Thank You Letter form. - Follow up: Private Physician; When: 2 - 3 days; Reason: If symptoms return, Further diagnostic work-up, Recheck today's complaints, Continuance of care, Re-evaluation by your physician. - Problem is new. - Symptoms are unchanged. Signatures: Dispatcher [employer] EDDevin Lobo, RN RN sg Carl Quintana MD MD kdr Tony Bundy RN RN rv Corrections: (The following items were deleted from the chart) 16:47 16:33 10/09/2017 16:33 Discharged to Home. Impression: Headache; Dizziness and rv giddiness; Anemia, unspecified; - recent. Condition is Stable. Forms are Medication Reconciliation Form, Thank You Letter, Antibiotic Education, Prescription Opioid Use. Follow up: Private Physician; When: 2 - 3 days; Reason: If symptoms return, Further diagnostic work-up, Recheck today's complaints, Continuance of care, Re-evaluation by your physician. Problem is new. Symptoms are unchanged. kdr
[2017-10-09 16:52] VITALS: BP 121/76; TEMP 97.7
[2017-10-09 16:53] VITALS: O2SAT 97
== END 2017-10-09 16:47 | disposition home or self-care (01) ==
LOC: ER 14:30
DX: O90.81 Anemia of the puerperium (principal); R51 Headache
CPT/HCPCS: 36415; 70450; 80048; 81003; 85025; 96360; 99284

== ENCOUNTER 2018-01-14 15:20 | Emergency (ER) | payer OTHER, SELFPAY ==
--- OUTSIDE RECORDS SUMMARY | 2018-01-14 15:23 | XMS REPORT ---
[...] End Date Status Dosage System Date Albuterol [facility] [id number] 108 (90 Base) Feb 12, Active 2 puffs Sulfate HFA MCG/ACT 2018 as needed Inhalation every 6 hrs Results No Known Results Summary Purpose [employer] Submission
--- OUTSIDE RECORDS SUMMARY | 2018-01-14 15:23 | XMS REPORT ---
:1990 Author Organization eClinicalWorks Care Team Providers Name Role Phone Jamarcus Encarnacion Provider Role Unavailable Allergies, Adverse Reactions, Alerts Substance Reaction Event Type N.K.D.A. Info Not Available Non Drug Allergy Problems Problem Type Condition Code Onset Dates Condition Status Problem Diseases of the skin and O99.713 [...] Date Status Dosage System Date Albuterol [facility] [id number] 108 (90 Base) Apr 08, Active 2 puffs Sulfate HFA MCG/ACT 2018 as needed Inhalation every 6 hrs Results No Known Results Summary Purpose [employer] Submission
--- OUTSIDE RECORDS SUMMARY | 2018-01-14 15:23 | XMS REPORT ---
[...] End Date Status Dosage System Date Albuterol [facility] [id number] 108 (90 Base) Feb 12, Active 2 puffs Sulfate HFA MCG/ACT 2018 as needed Inhalation every 6 hrs Results No Known Results Summary Purpose [employer] Submission
--- OUTSIDE RECORDS SUMMARY | 2018-01-14 15:23 | XMS REPORT ---
[...] End Date Status Dosage System Date Albuterol [facility] [id number] 108 (90 Base) Apr 08, Active 2 puffs Sulfate HFA MCG/ACT 2018 as needed Inhalation every 6 hrs Results No Known Results Summary Purpose [employer] Submission
--- OUTSIDE RECORDS SUMMARY | 2018-01-14 15:23 | XMS REPORT ---
[...] End Date Status Dosage System Date Albuterol [facility] [id number] 108 (90 Base) Feb 12, Active 2 puffs Sulfate HFA MCG/ACT 2018 as needed Inhalation every 6 hrs Results No Known Results Summary Purpose [employer] Submission
--- OUTSIDE RECORDS SUMMARY | 2018-01-14 15:23 | XMS REPORT ---
[...] End Date Status Dosage System Date Albuterol [facility] [id number] 108 (90 Base) Apr 08, Active 2 puffs Sulfate HFA MCG/ACT 2018 as needed Inhalation every 6 hrs Results No Known Results Summary Purpose [employer]ClinicalWorks Submission
--- OUTSIDE RECORDS SUMMARY | 2018-01-14 15:23 | XMS REPORT ---
[...] End Date Status Dosage System Date Albuterol [facility] [id number] 108 (90 Base) Apr 08, Active 2 puffs Sulfate HFA MCG/ACT 2018 as needed Inhalation every 6 hrs Results No Known Results Summary Purpose [employer] Submission
--- OUTSIDE RECORDS SUMMARY | 2018-01-14 15:23 | XMS REPORT ---
:1990 Author Organization eClinicalWorks Care Team Providers Name Role Phone Mirian Irvin Provider Role Unavailable Allergies, Adverse Reactions, Alerts Substance Reaction Event Type N.K.D.A. Info Not Available Non Drug Allergy Problems Problem Type Condition Code Onset Dates Condition Status Assessment Postop check Z09 Active Assessment H/O section Z98.891 Active Assessment Encounter for removal of irene Z48.02 Active Problem Diseases of the skin and [...] End Date Status Dosage System Date Albuterol [facility] [id number] 108 (90 Base) Apr 08, Active 2 puffs Sulfate HFA MCG/ACT 2018 as needed Inhalation every 6 hrs Results No Known Results Summary Purpose [employer]ClinicalWorks Submission
--- OUTSIDE RECORDS SUMMARY | 2018-01-14 15:23 | XMS REPORT ---
:1990 Author Organization eClinicalWorks Care Team Providers Name Role Phone Mirian Irvin Provider Role Unavailable Allergies, Adverse Reactions, Alerts Substance Reaction Event Type N.K.D.A. Info Not Available Non Drug Allergy Problems Problem Type Condition Code Onset Dates Condition Status Assessment Encounter for routine Z39.2 Active follow-up Problem Unspecified asthma, uncomplicated J45.909 Active Assessment Hypokalemia E87.6 Active Assessment Anemia due to acute blood loss D62 Active Problem Pruritus, unspecified L29.9 Active Problem Diseases of the skin and O99.713 Active subcutaneous tissue complicating , third trimester Problem Encounter for routine Z39.2 Active follow-up Problem Size of fetus inconsistent with O26.843 Active dates in third trimester Problem with uncertain dates in Z34.93 Active third trimester Problem BMI 33.0-33.9,adult Z68.33 Active Problem High-risk in third O09.93 Active trimester Medications Medication Code Code Instructions Start End Date Status Dosage System Date Albuterol [facility] [id number] 108 (90 Base) Apr 08, Active 2 puffs Sulfate HFA MCG/ACT 2017 as needed Inhalation every 6 hrs Results No Known Results Summary Purpose [employer]ClinicalWorks Submission
[2018-01-14] MEDS ORDERED: CLINDAMYCIN IV 150 MG/ML (4 mL) VIAL ONE (16:09)
--- NOTE | 2018-01-14 16:13 | ER ---
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 Transition of care: patient was not received from another setting of care. Onset of symptoms was January 12, 2018. Risk Assessment: Do you want to hurt yourself or someone else? Patient reports no desire to harm self or others. Initial Sepsis Screen: Does the patient meet any 2 criteria? No. Patient's initial sepsis screen is negative. Does the patient have a suspected source of infection? No. Patient's initial sepsis screen is negative. Care prior to arrival: None. 15:29 Method Of Arrival: Ambulatory 7 15:29 Acuity: SAIDA 4 jl7 Triage Assessment: 15:33 General: Appears in no apparent distress. uncomfortable, Behavior is calm, cooperative, jl7 appropriate for age, Smells of. Pain: Complains of pain in lower right third molar Pain currently is 9 out of 10 on a pain scale. EENT: Reports pain in lower right third molar. Neuro: Level of Consciousness is awake, alert, obeys commands. Cardiovascular: Patient's skin is warm and dry. Respiratory: Airway is patent Respiratory effort is even, unlabored, Respiratory pattern is regular, symmetrical. Derm: Skin is pink, warm \\T\\ dry. 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 - Social history:: Smoking status: Patient/guardian denies using tobacco. - Ebola Screening: : No symptoms or risks identified at this time. Screenin:48 Abuse screen: Denies threats or abuse. Denies injuries from another. Nutritional rv screening: No deficits noted. Tuberculosis screening: No symptoms or risk factors identified. Fall Risk None identified. Assessment: 15:47 General: Appears in no apparent distress. comfortable, Behavior is calm, cooperative. rv Pain: Complains of pain in tooth. Neuro: Level of Consciousness is awake, alert, obeys commands, Oriented to person, place, time, situation. Cardiovascular: Capillary refill < 3 seconds. Respiratory: Airway is patent. GI: No signs and/or symptoms were reported involving the gastrointestinal system. : No signs and/or symptoms were reported regarding the genitourinary system. EENT: No signs and/or symptoms were reported regarding the EENT system. Derm: Skin is intact. Musculoskeletal: No signs and/or symptoms reported regarding the musculoskeletal system. Vital Signs: 15:33 BP 126 / 81; Pulse 70; Resp 16 S; Temp 98.6(O); Pulse Ox 98% on R/A; Weight 79.38 kg jl7 (R); Height 5 ft. 6 in. (167.64 cm) (R); Pain 9/10; 15:33 Body Mass Index 28.25 (79.38 kg, 167.64 cm) jl7 ED Course: 15:24 Patient arrived in ED. sb2 15:24 None, None is Private Physician. sb2 15:32 Triage completed. jl7 15:33 Arm band placed on right wrist. jl7 15:37 [facility] 15:37 Luis Alanis MD is Attending Physician. [facility] 15:37 Skylar Whalen, RN is Primary Nurse. iw 15:49 Patient has correct armband on for positive identification. Bed in low position. Call rv light in reach. Side rails up X 1. Pulse ox on. NIBP on. 15:49 No provider procedures requiring assistance completed. Patient did not have IV access rv during this emergency room visit. Administered Medications: 16:06 Drug: Clindamycin 600 mg Route: IM; Site: left deltoid; rv 16:17 Follow up: Response: No adverse reaction rv Outcome: 16:12 Discharge ordered by . clinton 16:17 Discharged to home ambulatory. rv 16:17 Condition: good 16:17 Discharge instructions given to patient, Instructed on discharge instructions, follow up and referral plans. medication usage, Demonstrated understanding of instructions, follow-up care, medications, Prescriptions given X 2. 16:17 Patient left the ED. rv Signatures: Antonio Weiss PA PA jmm Williams, Irene, RN RN iw Mj Simmons RN RN jl7 Duyen Lewis 2 Tony Bundy RN RN rv
--- NOTE | 2018-01-14 16:13 | EDPHYS ---
Physician Documentation [facility] Name: Patti Saenz Age: 27 yrs Sex: Female : 1990 Arrival Date: 01/14/2018 Time: 15:24 Bed 10 Private MD: None, None ED Physician Luis Alanis HPI: 01/14 15:48 This 27 yrs old Female presents to ER via Ambulatory with complaints of jmm Toothache. 15:48 The patient presents with pain, swelling. Onset: The symptoms/episode began/occurred jmm gradually. This is a 27 year old female with a history of asthma that presents to the ED with right sided dental pain. patient states she recently visited dentist whom advised her to go to applied anthropologist for safe antibiotics. . 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 - Social history:: Smoking status: Patient/guardian denies using tobacco. - Ebola Screening: : No symptoms or risks identified at this time. ROS: 15:48 Constitutional: Negative for fever, chills, and weight loss. jmm 15:48 Neck: Negative for injury, pain, and swelling, Cardiovascular: Negative for chest pain, palpitations, and edema, Respiratory: Negative for shortness of breath, cough, wheezing, and pleuritic chest pain, Abdomen/GI: Negative for abdominal pain, nausea, vomiting, diarrhea, and constipation. 15:48 ENT: Positive for dental pain. 15:48 All other systems are negative. Exam: 15:48 Constitutional: This is a well developed, well nourished patient who is awake, alert, jmm and in no acute distress. 15:48 Back: Normal ROM Skin: General appearance color normal MS/ Extremity: Moves all extremities, no obvious deformities appreciated, no edema noted to the lower extremities Neuro: Awake and alert, normal gait 15:48 Head/face: no facial swelling is appreciated. 15:48 ENT: Dental exam: dental caries, that is moderate, specifically in the lower right second bicuspid (#29), lower right first molar (#30) and lower right second molar (#31), gum swelling. 15:48 Neck: no submandibular tenderness is appreciated. 15:48 Chest/axilla: 15:48 Cardiovascular: Rate: normal, Rhythm: regular. 15:48 Respiratory: the patient does not display signs of respiratory distress, Respirations: normal, Breath sounds: are clear throughout. Vital Signs: 15:33 BP 126 / 81; Pulse 70; Resp 16 S; Temp 98.6(O); Pulse Ox 98% on R/A; Weight 79.38 kg jl7 (R); Height 5 ft. 6 in. (167.64 cm) (R); Pain 9/10; 15:33 Body Mass Index 28.25 (79.38 kg, 167.64 cm) jl7 MDM: 15:47 Patient medically screened. jmm 16:10 Data reviewed: vital signs, nurses notes. Data interpreted: Pulse oximetry: on room air jmm is 98 %. Counseling: I had a detailed discussion with the patient and/or guardian regarding: the historical points, exam findings, and any diagnostic results supporting the discharge/admit diagnosis, the need for outpatient follow up, to return to the emergency department if symptoms worsen or persist or if there are any questions or concerns that arise at home. ED course: No submandibular swelling, patient is afebrile and non toxic in appearance. I do not currently suspect ludwigs. Patient prescribed oral antibiotics. Advised to follow up with dentist. Patient given return precautions. patient understood and agrees with the plan of care. . Administered Medications: 16:06 Drug: Clindamycin 600 mg Route: IM; Site: left deltoid; rv 16:17 Follow up: Response: No adverse reaction rv Disposition: 01/15 06:37 Co-signature as Attending Physician, Luis Alanis MD I agree with the assessment and dario plan of care. Disposition: 01/14/18 16:12 Discharged to Home. Impression: Dental Pain. - Condition is Stable. - Discharge Instructions: Dental Pain. - Prescriptions for Clindamycin HCl 300 mg Oral Capsule - take 1 capsule by ORAL route every 6 hours for 10 days; 40 capsule. Ibuprofen 800 mg Oral Tablet - take 1 tablet by ORAL route every 8 hours As needed take with food; 30 tablet. - Medication Reconciliation Form, Thank You Letter, Antibiotic Education, Prescription Opioid Use form. - Follow up: Private Physician; When: 2 - 3 days; Reason: Recheck today's complaints, Continuance of care, Re-evaluation by your physician. Signatures: Luis Alanis MD MD cha Mickail, Joel, PA PA jmm Leal, Jahala, GUILLERMINA RN jl7 Tony Bundy RN RN rv Corrections: (The following items were deleted from the chart) 01/14 16:17 16:12 01/14/2018 16:12 Discharged to Home. Impression: Dental Pain. Condition is rv Stable. Forms are Medication Reconciliation Form, Thank You Letter, Antibiotic Education, Prescription Opioid Use. Follow up: Private Physician; When: 2 - 3 days; Reason: Recheck today's complaints, Continuance of care, Re-evaluation by your physician. vitaliy
[2018-01-14 16:57] VITALS: BP 126/81; TEMP 98.6; O2SAT 98
== END 2018-01-14 16:17 | disposition home or self-care (01) ==
LOC: ER 15:20
DX: K08.89 Other specified disorders of teeth and supporting structures (principal); J45.909 Unspecified asthma, uncomplicated
CPT/HCPCS: 96372; 99283; S0077

== ENCOUNTER 2018-10-17 01:45 | Emergency (ER) | payer SELFPAY ==
[2018-10-17] MEDS ORDERED: ASPIRIN 81 MG CHEWABLE TABLET ONE (02:34)
[2018-10-17 03:07] LABS: Basophils % 0.4 % (0-1.3); Hematocrit 41.9 % (36.0-45.0); Lymphocytes % 32.1 % (15.3-44.8); MPV 8.5 fL (7.6-11.3)
[2018-10-17 03:12] LABS: Protime INR 1.05
[2018-10-17 03:24] LABS: ALT/SGPT 26 U/L (12-78); AST/SGOT 14 U/L (15-37); Albumin 4.1 g/dL (3.4-5.0); Alkaline Phosphatase 106 U/L (45-117); BUN Blood Urea Nitrogen 11 mg/dL (7-18); Bicarbonate 27 mmol/L (21-32); Bilirubin Direct 0.1 mg/dL (0-0.2); Bilirubin Total 0.6 mg/dL (0.2-1.0); Glucose Level 105 mg/dL (74-106); NT PRO-BNP 23 pg/mL (<125); Potassium 3.6 mmol/L (3.5-5.1); Protein, Total 8.1 g/dL (6.4-8.2); Sodium Level 141 mmol/L (136-145); Troponin (Emerg Dept Use Only) < 0.02 ng/mL (0.0-0.045)
--- NOTE | 2018-10-17 03:37 | EDPHYS ---
Physician Documentation [facility] Name: Patti Saenz Age: 28 yrs Sex: Female : 1990 Arrival Date: 10/17/2018 Time: 01:47 Bed 17 Private MD: ED Physician Carl Quintana HPI: 10/17 02:20 This 28 yrs old Female presents to ER via Ambulatory with complaints of High cp Blood Pressure. 02:20 The patient or guardian reports chest pain that is located primarily in the anterior cp chest wall, left. 02:20 The chest pain is described as burning. Duration: The patient or guardian reports a cp single episode, that is still ongoing, but improving. Patient reports she was at home when she suddenly had "hot flash" and burning in left upper arm from elbow to left upper chest. 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 - Social history:: Smoking status: Patient/guardian denies using tobacco. - Ebola Screening: : No symptoms or risks identified at this time. ROS: 02:28 Eyes: Negative for injury, pain, redness, and discharge. cp 02:28 Constitutional: Negative for body aches, chills, fever, poor PO intake. 02:28 ENT: Negative for drainage from ear(s), ear pain, sore throat, difficulty swallowing, difficulty handling secretions. 02:28 Neck: Negative for pain with movement, pain at rest, stiffness, tenderness. 02:28 Cardiovascular: Positive for chest pain, Negative for edema, palpitations. 02:28 Respiratory: Negative for cough, shortness of breath, wheezing. 02:28 Abdomen/GI: Negative for abdominal pain, nausea, vomiting, and diarrhea, constipation, black/tarry stool, rectal bleeding. 02:28 Back: Negative for pain at rest, pain with movement, radiated pain. 02:28 MS/extremity: Positive for pain, of the left upper arm and left elbow, Negative for injury or acute deformity, decreased range of motion, paresthesias. 02:28 Neuro: Negative for altered mental status, dizziness, headache, syncope, weakness. 02:28 All other systems are negative. Exam: 02:40 Constitutional: The patient appears in no acute distress, alert, awake, cp non-diaphoretic, non-toxic, well developed, well nourished. 02:40 Head/Face: Normocephalic, atraumatic. cp 02:40 Eyes: Periorbital structures: appear normal, Conjunctiva: normal, no exudate, no injection, Sclera: no appreciated abnormality, Lids and lashes: appear normal, bilaterally. 02:40 ENT: External ear(s): are unremarkable, Nose: is normal, Mouth: Lips: moist, Oral mucosa: pink and intact, moist, Posterior pharynx: is normal, airway is patent, no erythema, no exudate. 02:40 Neck: ROM/movement: is normal, is supple, without pain, no range of motions limitations, no nuchal rigidity. 02:40 Chest/axilla: Inspection: normal, Palpation: is normal, no crepitus, no tenderness. 02:40 Cardiovascular: Rate: normal, Rhythm: regular, Edema: is not appreciated, JVD: is not appreciated. 02:40 Respiratory: the patient does not display signs of respiratory distress, Respirations: normal, no use of accessory muscles, no retractions, no splinting, no tachypnea, labored breathing, is not present, Breath sounds: are clear throughout, no decreased breath sounds, no stridor, no wheezing. 02:40 Abdomen/GI: Inspection: abdomen appears normal, Palpation: abdomen is soft and non-tender, in all quadrants. 02:40 Back: pain, is absent, ROM is normal. 02:40 Musculoskeletal/extremity: Extremities: grossly normal except: noted in the left upper arm and left elbow: pain, There is no evidence of decreased ROM, deformity, swelling, Pulses: noted to be 2+ in the right radial artery and left radial artery. 02:40 Neuro: Orientation: to person, place \\T\\ time. Mentation: is normal, Motor: moves all fours, strength is normal, Sensation: no obvious gross deficits. 02:41 ECG was reviewed by the Attending Physician. cp Vital Signs: 01:59 BP 128 / 83; Pulse 88; Resp 16; Temp 98.0(O); Pulse Ox 99% on R/A; Weight 81.65 kg (R); ak1 Height 5 ft. 6 in. (167.64 cm) (R); Pain 6/10; 03:45 BP 117 / 74; Pulse 84; Resp 16; Pulse Ox 98% on R/A; jb4 01:59 Body Mass Index 29.05 (81.65 kg, 167.64 cm) ak1 MDM: 02:18 Patient medically screened. cp 02:47 Differential diagnosis: abnormal EKG, acute myocardial infarction, acute pericarditis, cp cholecystitis, Cholelithiasis costochondritis, pleurisy, pneumonia, pneumothorax, pulmonary embolus. 03:35 Data reviewed: vital signs, nurses notes, lab test result(s), EKG, radiologic studies, cp plain films. 03:35 Test interpretation: by ED physician or midlevel provider: ECG, chest xray negative for cp infiltrates. Counseling: I had a detailed discussion with the patient and/or guardian regarding: the historical points, exam findings, and any diagnostic results supporting the discharge/admit diagnosis, lab results, radiology results, to return to the emergency department if symptoms worsen or persist or if there are any questions or concerns that arise at home. Special discussion: Based on the patient's history, exam, and Dx evaluation, there is no indication for emergent intervention or inpatient Tx. It is understood by the patient/guardian that if the Sx's persist or worsen they need to return immediately for re-evaluation. 10/17 02:18 Order name: Basic Metabolic Panel 10/17 02:18 Order name: CBC with Diff; Complete Time: 03:09 cp 10/17 03:09 Interpretation: Normal except: RBC 5.00; MCV 83.8. cp 10/17 02:18 Order name: LFT's; Complete Time: 03:31 cp 10/17 03:31 Interpretation: Normal except: AST 14; GLOB 4.0; A/G 1.0. cp 10/17 02:18 Order name: Magnesium; Complete Time: 03:31 cp 10/17 02:18 Order name: NT PRO-BNP; Complete Time: 03:31 cp 10/17 02:18 Order name: PT-INR; Complete Time: 03:31 cp 10/17 02:18 Order name: Troponin (emerg Dept Use Only); Complete Time: 03:31 cp 10/17 03:31 Interpretation: Within normal limits: TROPED < 0.02. cp 10/17 02:18 Order name: Basic Metabolic Panel; Complete Time: 03:31 EDMS 10/17 03:31 Interpretation: Within normal limits. cp 10/17 02:47 Order name: Urine Dipstick--Ancillary (enter results) [facility] 10/17 02:47 Order name: Urine --Ancillary (enter results) [facility] 10/17 02:47 Order name: XRAY Chest (1 view) 10/17 02:18 Order name: EKG - Nurse/Tech; Complete Time: 02:42 cp 10/17 02:18 Order name: IV Saline Lock; Complete Time: 02:42 cp 10/17 02:18 Order name: Labs collected and sent; Complete Time: 02:42 cp 10/17 02:18 Order name: O2 Per Protocol; Complete Time: 02:23 cp 10/17 02:18 Order name: O2 Sat Monitoring; Complete Time: 02:23 cp 10/17 02:18 Order name: Urine Dipstick-Ancillary (obtain specimen); Complete Time: 02:54 cp 10/17 02:18 Order name: Urine Test (obtain specimen); Complete Time: 02:54 cp EC:41 Rate is 94 beats/min. Rhythm is regular. FL interval is normal. QRS interval is normal. cp QT interval is normal. T waves are Inverted in lead III. Interpreted by me. Reviewed by me. Administered Medications: 02:36 Drug: Aspirin Chewable Tablet 324 mg Route: PO; ak1 02:54 Follow up: Response: No adverse reaction ak1 Disposition: 04:17 Co-signature as Attending Physician, Carl Quintana MD I agree with the assessment and kdr plan of care. Disposition: 10/17/18 03:36 Discharged to Home. Impression: Other chest pain, Pain in left upper arm. - Condition is Stable. - Discharge Instructions: Nonspecific Chest Pain. - Prescriptions for Ibuprofen 800 mg Oral Tablet - take 1 tablet by ORAL route every 8 hours As needed take with food; 30 tablet. - Medication Reconciliation Form, Thank You Letter, Antibiotic Education, Prescription Opioid Use form. - Follow up: Private Physician; When: 1 - 2 days; Reason: Worsening of condition. - Problem is new. - Symptoms are resolved. Signatures: Dispatcher [employer] EDMS Carl Quintana MD MD [facility] Es Hargrove RN RN ak1 Luis Romero PA PA cp Martin Mustafa, RN RN jb4 Corrections: (The following items were deleted from the chart) 03:57 03:36 10/17/2018 03:36 Discharged to Home. Impression: Other chest pain; Pain in left jb4 upper arm. Condition is Stable. Forms are Medication Reconciliation Form, Thank You Letter, Antibiotic Education, Prescription Opioid Use. Follow up: Private Physician; When: 1 - 2 days; Reason: Worsening of condition. Problem is new. Symptoms are resolved. cp
--- NOTE | 2018-10-17 03:37 | ER ---
Nurse's Notes [facility] Name: Patti Saenz Age: 28 yrs Sex: Female : 1990 Arrival Date: 10/17/2018 Time: 01:47 Bed 17 Private MD: Diagnosis: Other chest pain;Pain in left upper arm Presentation: 10/17 02:09 Presenting complaint: Patient states: hot flash at 0140 with "burning" sensation to ak1 left elbow to chest. pt stated she took her blood pressure at home 139/96. pt denies taking blood pressure medications, pt denies being dx with hypertension. Transition of care: patient was not received from another setting of care. Onset of symptoms was October 17, 2018. Risk Assessment: Do you want to hurt yourself or someone else? Patient reports no desire to harm self or others. Initial Sepsis Screen: Does the patient meet any 2 criteria? No. Patient's initial sepsis screen is negative. Does the patient have a suspected source of infection? No. Patient's initial sepsis screen is negative. Care prior to arrival: None. 02:09 Method Of Arrival: Ambulatory ak1 02:09 Acuity: SAIDA 4 ak1 Triage Assessment: 02:14 General: Appears in no apparent distress. comfortable, Behavior is calm, cooperative. ak1 Pain: Complains of pain in left bicep and left antecubital area Quality of pain is described as burning. EENT: No signs and/or symptoms were reported regarding the EENT system. Neuro: No deficits noted. Cardiovascular: No deficits noted. Respiratory: No deficits noted. GI: No signs and/or symptoms were reported involving the gastrointestinal system. : No signs and/or symptoms were reported regarding the genitourinary system. Derm: No signs and/or symptoms reported regarding the dermatologic system. Musculoskeletal: No signs and/or symptoms reported regarding the musculoskeletal system. 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 - Social history:: Smoking status: Patient/guardian denies using tobacco. - Ebola Screening: : No symptoms or risks identified at this time. Screenin:15 Abuse screen: Denies threats or abuse. Denies injuries from another. Nutritional ak1 screening: No deficits noted. Tuberculosis screening: No symptoms or risk factors identified. Fall Risk None identified. Assessment: 02:16 Reassessment: Patient appears in no apparent distress at this time. No changes from ak1 previously documented assessment. Patient is alert, oriented x 3, equal unlabored respirations, skin warm/dry/pink. see triage assessment. 03:30 Reassessment: Patient appears in no apparent distress at this time. Patient and/or jb4 family updated on plan of care and expected duration. Pain level reassessed. Patient is alert, oriented x 3, equal unlabored respirations, skin warm/dry/pink. Vital Signs: 01:59 BP 128 / 83; Pulse 88; Resp 16; Temp 98.0(O); Pulse Ox 99% on R/A; Weight 81.65 kg (R); ak1 Height 5 ft. 6 in. (167.64 cm) (R); Pain 6/10; 03:45 BP 117 / 74; Pulse 84; Resp 16; Pulse Ox 98% on R/A; jb4 01:59 Body Mass Index 29.05 (81.65 kg, 167.64 cm) ak1 ED Course: 01:47 Patient arrived in ED. ds1 01:56 Es Hargrove, RN is Primary Nurse. ak1 01:59 Arm band placed on Patient placed in an exam room, on a stretcher, on pulse oximetry, ak1 Patient notified of wait time. 02:01 Luis Romero PA is PHCP. cp 02:01 Carl Quintana MD is Attending Physician. cp 02:12 Triage completed. ak1 02:15 Patient has correct armband on for positive identification. Bed in low position. Call ak1 light in reach. Side rails up X 1. Pulse ox on. NIBP on. 02:42 Initial lab(s) drawn, by me, sent to lab. Urine collected: clean catch specimen, clear, ak1 EKG done, by ED staff, reviewed by Luis OCAMPO. Inserted saline lock: 20 gauge in right antecubital area, using aseptic technique. Blood collected. 03:32 X-ray completed. Portable x-ray completed in exam room. Patient tolerated procedure kw well. 03:33 XRAY Chest (1 view) In Process Unspecified. EDMS 03:45 No provider procedures requiring assistance completed. IV discontinued, intact, jb4 bleeding controlled, No redness/swelling at site. Pressure dressing applied. Administered Medications: 02:36 Drug: Aspirin Chewable Tablet 324 mg Route: PO; ak1 02:54 Follow up: Response: No adverse reaction ak1 Outcome: 03:36 Discharge ordered by . elijah 03:45 Discharged to home ambulatory, with family. jb4 03:45 Condition: stable 03:45 Discharge instructions given to patient, family, Instructed on discharge instructions, follow up and referral plans. medication usage, Demonstrated understanding of instructions, follow-up care, medications, Prescriptions given X 1. 03:57 Patient left the ED. jb4 Signatures: Dispatcher [employer] EDUT Jen Montoya ds1 Deborah Dexter Amber, RN RN ak1 Luis Romero PA PA cp Bryson, James, RN RN jb4
[2018-10-17 04:22] LABS: Urine Blood TRACE (NEG); Urine Glucose NEGATIVE (NEG); Urine Protein NEGATIVE (NEG)
[2018-10-17 04:45] VITALS: TEMP 98
[2018-10-17 04:46] VITALS: BP 117/74; O2SAT 98
--- NOTE | 2018-10-17 07:58 | RAD REPORT ---
EXAM DESCRIPTION: Sebastien Single View10/17/2018 3:31 am CLINICAL HISTORY: Chest pain COMPARISON: none FINDINGS: The lungs appear clear of acute infiltrate. The heart is normal size IMPRESSION: No acute abnormalities displayed
--- NOTE | 2018-10-18 15:53 | EKG ---
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
== END 2018-10-17 03:57 | disposition home or self-care (01) ==
LOC: ER 01:45
DX: R07.89 Other chest pain (principal); M79.622 Pain in left upper arm
CPT/HCPCS: 36415; 71045; 80048; 80076; 81003; 81025; 83735; 83880; 84484; 85025; 85610; 93005; 99284

== ENCOUNTER 2021-10-06 01:03 | Emergency (ER) | payer SELFPAY ==
--- OUTSIDE RECORDS SUMMARY | 2021-10-06 01:06 | XMS REPORT | Continuity of Care Document ---
:1990 Author Organization [facility] Address [address] [place] [address] Care Team Providers Name Role Phone Unavailable Unavailable Unavailable Problems Condition Condition Condition Status Onset Resolution Last Treating Co mments Source Name Details Category Date Date Treatment Clinician Date Size of Size of Problem Active Common fetus fetus Spirit inconsiste inconsiste - [facility] nt with nt with St dates in dates in [facility] third third Medical trimester trimester Cent er Problem Active Com mon with with Spirit uncertain uncertain - CH I dates in dates in St third third [facility] trimester trimester [facility] Unspecifie Unspecifie Problem Active C ommon d asthma, d asthma, Spir it uncomplica uncomplica - [facility]I jose jose [facility] High-risk High-risk Problem Active Com mon Spir it in third in third - CHI trimester trimester [facility] BMI BMI Problem Active Common 33.0-33.9, 33.0-33.9, Sp jakob adult adult - [facility] Diseases Diseases Problem Active Commo n of the of the [facility] skin and skin and - [facility]I subcutaneo subcutaneo St us tissue us tissue Lu s complicati complicati Me dical [facility] , , third third trimester trimester Pruritus, Pruritus, Problem Active Com mon unspecifie unspecifie Sp jakob d d - CHI [facility] Encounter Encounter Problem Active Com mon for for Spirit routine routine - [facility]I follow-up follow-up [facility] Hypokalemi Hypokalemi Diagnosis Active Common a a Spirit - CHI [facility] Anemia due Anemia due Diagnosis Active Common to acute to acute Spirit blood loss blood loss - [facility] Allergies, Adverse Reactions, Alerts This patient has no known allergies or adverse reactions. Medications Ordered Filled Start Stop Current Ordering Indication Dosage Frequency Signature Comments Components Source Medication Medication Date Date Medication? Clinician (SIG) Name Name Albuterol Albuterol 2018- Yes Mirian 2 puffs as Common Sulfate HFA Sulfate HFA 2-12 Irvin needed Spirit 00:00: - [facility] Procedures This patient has no known procedures. Encounters Start End Encounter Admission Attending Care Care Encounter Source Date/Time Date/Time Type Type Clinicians Facility Department ID 2017-11-06 2017-11-06 [id number] Common 14:00:00 14:00:00 [facility] 2017-10-16 2017-10-16 [facility] [id number] Common 11:05:00 11:05:00 t [facility] 2017-10-16 2017-10-16 [facility] [id number] Common 10:42:00 10:42:00 t [facility] 2017-10-11 2017-10-11 [facility] [id number] Common 09:00:00 09:00:00 t [facility] 2017-10-02 2017-10-02 [facility] [id number] Common 13:30:00 13:30:00 t [facility] 2017-09-26 2017-09-26 [facility] [id number] Common 10:00:00 10:00:00 t [facility] 2017-09-13 2017-09-13 [facility] [id number] Common 11:30:00 11:30:00 t [facility] 2017-09-06 2017-09-06 [facility] [id number] Common 09:00:00 09:00:00 t [facility] 2017-08-29 2017-08-29 [facility] [id number] Common 13:15:00 13:15:00 Women's [facility]'s [facility] - I Clinic [facility] Results This patient has no known results.
[2021-10-06 01:56] LABS: Absolute Lymphocytes (CBC) 1.3 K/uL (0.7-4.9); Hematocrit 39.8 % (36.0-45.0); Lymphocytes % 15.8 % (15.3-44.8); MCV 80.7 fL (80-100); MPV 7.9 fL (7.6-11.3); RBC Red Blood Cell Count 4.93 M/uL (3.86-4.86)
[2021-10-06] MEDS ORDERED: IPRATROPIUM BROM 0.5MG/2.5ML ONE (01:59)
[2021-10-06] MEDS ORDERED: KETOROLAC 30 MG/ML INJ ONE (01:59)
[2021-10-06] MEDS ORDERED: NA CHLORIDE 0.9% 1,000 ML ONE (01:59)
[2021-10-06] MEDS ORDERED: ALBUTEROL 2.5 MG/3 ML NEB SOL ONE (01:59)
[2021-10-06 02:10] LABS: Potassium 3.4 mmol/L (3.5-5.1)
--- NOTE | 2021-10-06 02:44 | EDPHYS ---
Physician Documentation [facility] Name: Patti Saenz Age: 31 yrs Sex: Female : 1990 Arrival Date: 10/06/2021 Time: 01:17 Bed 19 Private MD: ED Physician Travis Becerra HPI: 10/06 01:43 This 31 yrs old Female presents to ER via EMS with complaints of weak \T\ near sp3 syncope COVID positive. 01:43 31-year-old female without any significant past medical history presents to the ED for sp3 chief complaint near syncope and generalized weakness status post pain COVID 19+ 3 days ago. Patient also complains of subjective fever. She has been taking Tylenol and Mucinex at home but due to her worsening symptoms she presents to the ED for further evaluation. She denies headache, neck pain, back pain, chest pain, abdominal pain, nausea, vomiting, diarrhea, skin rash, full syncope, or any other ROS at this time. She does have an active cough mild shortness of breath.. Historical: - Allergies: 01:28 No Known Allergies; ja4 - Social history:: Smoking status: Patient denies any tobacco usage or history of. Patient/guardian denies using alcohol, tobacco products. ROS: 01:45 Constitutional: Negative for fever, chills, and weight loss, Eyes: Negative for injury, sp3 pain, redness, and discharge, ENT: Negative for injury, pain, and discharge, Neck: Negative for injury, pain, and swelling, Abdomen/GI: Negative for abdominal pain, nausea, vomiting, diarrhea, and constipation, Back: Negative for injury and pain, MS/Extremity: Negative for injury and deformity, Skin: Negative for injury, rash, and discoloration, Neuro: Negative for headache, weakness, numbness, tingling, and seizure, Psych: Negative for depression, anxiety, suicide ideation, homicidal ideation, and hallucinations, Allergy/Immunology: Negative for hives, rash, and allergies, Endocrine: Negative for neck swelling, polydipsia, polyuria, polyphagia, and marked weight changes. 01:45 All other systems are negative. Exam: 01:45 Constitutional: This is a well developed, well nourished patient who is awake, alert, sp3 and in no acute distress. Head/Face: Normocephalic, atraumatic. Eyes: Pupils equal round and reactive to light, extra-ocular motions intact. Lids and lashes normal. Conjunctiva and sclera are non-icteric and not injected. Cornea within normal limits. Periorbital areas with no swelling, redness, or edema. ENT: Nares patent. No nasal discharge, no septal abnormalities noted. External auditory canals are clear. Oropharynx with no redness, swelling, or masses, exudates, or evidence of obstruction, uvula midline. Mucous membranes moist. Neck: Trachea midline, no thyromegaly or masses palpated, and no cervical lymphadenopathy. Supple, full range of motion without nuchal rigidity, or vertebral point tenderness. No Meningismus. Chest/axilla: Normal chest wall appearance and motion. Nontender with no deformity. No lesions are appreciated. Respiratory: Lungs have equal breath sounds bilaterally, clear to auscultation and percussion. No rales, rhonchi or wheezes noted. No increased work of breathing, no retractions or nasal flaring. Abdomen/GI: Soft, non-tender, with normal bowel sounds. No distension or tympany. No guarding or rebound. No evidence of tenderness throughout. Back: No spinal tenderness. No costovertebral tenderness. Full range of motion. Skin: Warm, dry with normal turgor. Normal color with no rashes, no lesions, and no evidence of cellulitis. MS/ Extremity: Pulses equal, no cyanosis. Neurovascular intact. Full, normal range of motion. Neuro: Awake and alert, GCS 15, oriented to person, place, time, and situation. Cranial nerves II-XII grossly intact. Motor strength 5/5 in all extremities. Sensory grossly intact. Cerebellar exam normal. Normal gait. Psych: Awake, alert, with orientation to person, place and time. Behavior, mood, and affect are within normal limits. 01:45 Cardiovascular: Rate: tachycardic. Vital Signs: 01:23 BP 123 / 80; Pulse 115; Resp 18; Temp 100.0; Pulse Ox 96% ; Weight 86.18 kg; Height 5 ja4 ft. 6 in. (167.64 cm); Pain 10/10; 02:13 BP 106 / 70; Pulse 110; Resp 18; Temp 99.5; Pulse Ox 97% on R/A; ja4 01:23 Body Mass Index 30.67 (86.18 kg, 167.64 cm) ja4 MDM: 01:23 Patient medically screened. sp3 01:46 Data reviewed: vital signs, nurses notes. ED course: 31-year-old female here sp3 with complications of COVID-19. Will obtain chest x-ray, laboratory values, administer Toradol IV, and administer normal saline 1 L bolus for supportive care. She has a mild fever at 100.2 and tachycardia at 115. The patient will feel much better after treatment will be cleared for discharge. Steroids not indicated at this time she has a normal pulse oxygenation.. 02:41 ED course: Patient is improved after breathing treatment. Chest x-ray demonstrates no sp3 significant abnormality. Laboratory values are normal. We will discharge her home on prednisone oral. Antibiotics not indicated at this time. Follow-up with her PCP.. 10/06 01:26 Order name: Basic Metabolic Panel; Complete Time: 02:13 sp3 10/06 01:26 Order name: CBC with Diff; Complete Time: 01:57 sp3 10/06 01:26 Order name: XRAY Chest (1 view) sp3 10/06 01:26 Order name: Cardiac monitoring sp3 10/06 01:26 Order name: IV Saline Lock; Complete Time: 01:39 sp3 10/06 01:26 Order name: Labs collected and sent; Complete Time: 01:45 sp3 Administered Medications: 02:09 Drug: NS 0.9% 1000 ml Route: IV; Rate: 1 bolus; Site: right antecubital; ja4 02:09 Drug: Ketorolac 30 mg Route: IVP; Site: right antecubital; ja4 02:09 Drug: DuoNeb (albuterol 2.5 mg, ipratropium 0.5 mg) (3:1) (2.5 mg - 0.5 mg) 3 ml Route: ja4 Nebulizer; Disposition Summary: 10/06/21 02:43 Discharge Ordered Location: Home sp3 Condition: Stable sp3 Diagnosis - SARS-associated coronavirus as the cause of diseases classified elsewhere sp3 - Acute bronchitis, unspecified sp3 Followup: sp3 - With: Private Physician - When: Upon discharge from the Emergency Department - Reason: Continuance of care Discharge Instructions: - Discharge Summary Sheet sp3 - Viral Respiratory Infection sp3 - COVID-19 sp3 Forms: - Medication Reconciliation Form sp3 - Thank You Letter sp3 - Antibiotic Education sp3 - Prescription Opioid Use sp3 Prescriptions: - Prednisone 20 mg Oral Tablet - take 2 tablets by ORAL route once daily for 5 days; 10 tablet; Refills: 0, sp3 Product Selection Permitted Signatures: Dispatcher [employer] EDMS Travis Becerra MD MD sp3 Augustine Manning RN RN ja4 Corrections: (The following items were deleted from the chart) 01:29 01:28 PMHx: Asthma; ja4 ja4 02:47 02:41 ED course: Patient is improved after breathing treatment. Chest x-ray sp3 demonstrates no significant abnormality. Laboratory values are normal. We will discharge her home on an albuterol inhaler. Antibiotics not indicated at this time. Follow-up with her PCP.. sp3
--- NOTE | 2021-10-06 02:44 | ER ---
Nurse's Notes [facility] Name: Patti Saenz Age: 31 yrs Sex: Female : 1990 Arrival Date: 10/06/2021 Time: 01:17 Bed 19 Private MD: Diagnosis: SARS-associated coronavirus as the cause of diseases classified elsewhere;Acute bronchitis, unspecified Presentation: 10/06 01:23 Chief complaint: Patient states: felt like passing out and head fills like a balloon ja4 and now pt feels like throat is closing. Coronavirus screen: Client reports previous positive COVID test result. Date of collection: October 04, 2021. Ebola Screen: Patient denies exposure to infectious person. Initial Sepsis Screen: Does the patient meet any 2 criteria? HR > 90 bpm. Does the patient have a suspected source of infection?. 01:23 Method Of Arrival: EMS [facility] 01:23 Risk Assessment: Do you want to hurt yourself or someone else? Patient reports no ja4 desire to harm self or others. Onset of symptoms was October 01, 2021. 01:23 Acuity: SAIDA 3 ja4 Triage Assessment: : General: Appears in no apparent distress. uncomfortable, Behavior is calm, cooperative, ja4 appropriate for age. Pain: Complains of pain in throat Pain currently is 10 out of 10 on a pain scale. EENT: white tongue. Reports pain when swallowing. Historical: - Allergies: : No Known Allergies; ja4 - Social history:: Smoking status: Patient denies any tobacco usage or history of. Patient/guardian denies using alcohol, tobacco products. Screenin:32 Abuse screen: Denies threats or abuse. Nutritional screening: No deficits noted. ja4 Tuberculosis screening: No symptoms or risk factors identified. Fall Risk None identified. Assessment: :32 General: Appears in no apparent distress. uncomfortable. Respiratory: Airway is patent. ja4 EENT: Throat is reddened. Vital Signs: 01:23 BP 123 / 80; Pulse 115; Resp 18; Temp 100.0; Pulse Ox 96% ; Weight 86.18 kg; Height 5 ja4 ft. 6 in. (167.64 cm); Pain 10/10; 02:13 BP 106 / 70; Pulse 110; Resp 18; Temp 99.5; Pulse Ox 97% on R/A; ja4 01:23 Body Mass Index 30.67 (86.18 kg, 167.64 cm) ja4 ED Course: 01:17 Patient arrived in ED. bp1 01:17 Augustine Manning, RN is Primary Nurse. ja4 01:23 Travis Becerra MD is Attending Physician. sp3 01:28 Triage completed. ja4 01:28 Arm band placed on right wrist. ja4 01:32 Patient has correct armband on for positive identification. Bed in low position. Call ja4 light in reach. 01:32 No provider procedures requiring assistance completed. ja4 01:44 Inserted saline lock: 20 gauge in right antecubital area, using aseptic technique. oe Blood collected. 01:44 CBC with Diff Sent. oe 01:45 Basic Metabolic Panel Sent. oe 01:48 XRAY Chest (1 view) In Process Unspecified. EDMS 03:18 IV discontinued, intact, bleeding controlled, No redness/swelling at site. Pressure ja4 dressing applied. Administered Medications: 02:09 Drug: NS 0.9% 1000 ml Route: IV; Rate: 1 bolus; Site: right antecubital; ja4 02:09 Drug: Ketorolac 30 mg Route: IVP; Site: right antecubital; ja4 02:09 Drug: DuoNeb (albuterol 2.5 mg, ipratropium 0.5 mg) (3:1) (2.5 mg - 0.5 mg) 3 ml Route: ja4 Nebulizer; Medication: 01:32 VIS not applicable for this client. ja4 Outcome: 02:43 Discharge ordered by . sp3 03:18 Discharged to home ambulatory. ja4 03:18 Condition: stable 03:18 Discharge instructions given to patient, Instructed on discharge instructions, medication usage, Demonstrated understanding of instructions, follow-up care, medications. 03:19 Patient left the ED. ja4 Signatures: Dispatcher [employer] EDMS Alan Jones oe Penelope Joya bp1 Travis Becerra MD MD sp3 Augustine Manning, RN RN ja4 Corrections: (The following items were deleted from the chart) 01:29 01:28 PMHx: Asthma; ja4 ja4
[2021-10-06 06:35] VITALS: BP 106/70; TEMP 99.5; O2SAT 97
--- NOTE | 2021-10-06 11:08 | RAD REPORT ---
EXAM DESCRIPTION: ADDENDUM #1 ADDENDUM: Chest 1 View AP 10/17/2018 images are now made available. No additional findings. Electronically signed by: Ha Madsen MD 10/06/2021 3:21 AM [employer] End of Addendum EXAM DESCRIPTION: XR Chest 1 View AP CLINICAL HISTORY: Cough COMPARISON: Chest 1 View AP 10/17/2018 report without images TECHNIQUE: Chest 1 View AP FINDINGS: Trachea midline. Heart size and pulmonary vessels within normal limits. Lungs clear without evidence of consolidation, mass, or significant pulmonary edema. No significant pleural effusion or pneumothorax. Mild symmetric bilateral lower lungs/chest density most likely represents overlying breast/chest wall attenuation artifact. Bones unremarkable. IMPRESSION: Unremarkable chest radiograph. Electronically signed by: Ha Madsen MD 10/06/2021 2:16 AM CDT Due to tmporary technical issues with the PACS/Fluency reporting system, reports are being signed by the in house radiologists without review as a courtesy to insure prompt reporting. The interpreting r adiologist is fully responsible for the content of the report.
== END 2021-10-06 03:19 | disposition home or self-care (01) ==
LOC: ER 01:03
DX: U07.1 COVID-19 (principal); J20.9 Acute bronchitis, unspecified
CPT/HCPCS: 36415; 71045; 80048; 85025; 94640; 96374; 99284; J7030